=== PATIENT | female | born 1950 | race African-American/Black ===

== ENCOUNTER 2017-02-15 12:20 | Inpatient (IN) | payer OTHER ==
[~2017-02-15] VITALS: Ht 160 cm; Wt 66.5 kg
[2017-02-15 17:46] VITALS: BP 132/72; PULSE 74; RESP 17
[2017-02-15] MEDS ORDERED: NACL 0.9% 3 ML SYG IV SCH (18:30)
[2017-02-15] MEDS ORDERED: HYDROCODONE/APAP (5/325) TAB PO PRN (18:30)
[2017-02-15] MEDS ORDERED: ONDANSETRON 4 MG INJ IV PRN (18:30)
[2017-02-15] MEDS ORDERED: ACETAMINOPHEN 325 MG TAB PO PRN (18:30)
[2017-02-15] MEDS ORDERED: DOCUSATE SODIUM 100 MG CAP PO PRN (18:30)
[2017-02-15] MEDS ORDERED: ZOLPIDEM 5 MG TAB PO PRN (18:30)
[2017-02-15] MEDS ORDERED: VANCOMYCIN IV PER PHARMACY XX SCH (18:30)
[2017-02-15] MEDS ORDERED: morphine 2 MG INJ IV PRN (18:30)
[2017-02-15 18:55] VITALS: Ht 160 cm; Wt 66.5 kg
--- NOTE | 2017-02-15 19:21 | HP ---
DATE OF ADMISSION: 02/15/2017 CHIEF COMPLAINT: Left lower extremity cellulitis. HISTORY OF PRESENT ILLNESS: The patient is a 66-year-old female with a psychiatric disorder. The vince lutz is unable to provide any significant history secondary to her psychiatric condition, as the vince lutz continues to ramble and is unable to answer any of the questions that were asked, but she bailee solo does have a psychiatric disorder. Per documentation from [facility], the patient has a histo ry of hypertension. Other than that, there is a history of chronic leg pain, hernia, noncompl iance, possible rheumatoid arthritis. Once again, the patient is tangential and is unable to provid e any significant history. PAST MEDICAL HISTORY: As per HPI. HOME MEDICATIONS: See medication reconciliation. ALLERGIES: 1. SULFA. 2. AMOXICILLIN. 3. PENICILLIN. FAMILY HISTORY: Unknown. SOCIAL HISTORY: The patient denies any tobacco, drug, or alcohol abuse. She is homeless. REVIEW OF SYSTEMS: A 12-point review of systems is difficult to obtain secondary to patient's poor mentation i.e., her psychiatric condition. PHYSICAL EXAMINATION: VITAL SIGNS: Temperature is 98.2, pulse 74, respiratory rate 17, BP is 132/72, saturation not repor georgiana at this time. GENERAL: The patient is doing well at room air. HEENT: Normocephalic, atraumatic. LUNGS: Clear to auscultation. CARDIOVASCULAR: Regular rate and rhythm. ABDOMEN: Nondistended, nontender, soft. EXTREMITIES: Left lower extremity is notable for significant erythema. LABORATORIES: [facility]'s show white count 6.2, hemoglobin 12.1, platelets are 169. Chemistry pa rikki: Glucose of 93, sodium 135, potassium 2.7, is 28, chloride 98, creatinine is 0.7, calcium is 8.7. ASSESSMENT AND PLAN: 1. Left lower extremity cellulitis, likely chronic. We will treat with vancomycin. We will get an ID consultation. 2. Psychiatric condition. HOME MEDICATION: Unclear. PROPHYLAXIS: Lovenox. Dictated By: ERNIE FELDMAN MD BS/NTS Conf#: [id number] DID#: [id number]
[2017-02-15 19:55] VITALS: BP 121/70; RESP 18
[2017-02-15] MEDS: VANCOMYCIN 500MG/NS (PMX) 100 ML IVPB SCH (20:59)
[2017-02-16 05:49] LABS: ADD SCAN DIFF NO
[2017-02-16 06:07] LABS: BASOPHILS % 0.1 % (0.0-2.0); HEMATOCRIT 35.4 % (37.0-47.0); HEMOGLOBIN 11.3 g/dl (12.0-16.0); LYMPHOCYTES % 13.4 % (15.0-51.0); MEAN CORPUSCULAR HEMOGLOBIN 28.3 pg (29.0-33.0); MEAN CORPUSCULAR HGB CONC 31.9 g/dl (32.0-37.0); MEAN CORPUSCULAR VOLUME 88.5 fl (82.0-101.0); MEAN PLATELET VOLUME 9.8 fl (7.4-10.4); MONOCYTE # 1.1 10^3/ul (0.3-0.9); MONOCYTES % 14.5 % (0.0-11.0); NEUTROPHIL # 5.4 10^3/ul (1.6-7.5); PLATELET COUNT 176 10^3/UL (140-415); RED CELL DISTRIBUTION WIDTH 14.6 % (11.5-14.5); WHITE BLOOD COUNT 7.7 10^3/ul (4.8-10.8)
[2017-02-16 06:16] LABS: POTASSIUM 3.5 mmol/L (3.5-5.1)
[2017-02-16 06:18] LABS: CREATININE 0.56 mg/dl (0.44-1.00)
[2017-02-16 06:19] LABS: CALCIUM 8.4 mg/dl (8.4-10.2); PHOSPHORUS 3.8 mg/dl (2.5-4.9)
[2017-02-16 07:39] VITALS: BP 148/88; RESP 20
[2017-02-16] MEDS: ENOXAPARIN 40 MG/0.4 ML SYG SC SCH (09:02)
[2017-02-16] MEDS: VANCOMYCIN 500MG/NS (PMX) 100 ML IVPB SCH (09:02)
[2017-02-16] MEDS ORDERED: VITAMIN A & D 5 GM OINT PACKET TOP ONE (10:46)
--- NOTE | 2017-02-16 11:19 | PN ---
Date/Time of Note Date/Time of Note DATE: 02/16/17 TIME: 11:17 Assessment/Plan VTE Prophylaxis VTE Prophylaxis Intervention: LMWH Lines/Catheters IV Catheter Type (from Nrs): Saline Lock Assessment/Plan Chief Complaint/Hosp Course 1. Left lower extremity cellulitis, likely chronic -cont vancomycin, ID and wound care consultations 2. Homelessness with Psychiatric condition -SW consult and Tele psych eval PPx- Lovenox Problems: Subjective 24 Hr Interval Summary Constitutional: disoriented Exam/Review of Systems Vital Signs Vitals Vital Signs Date Time Temp Pulse Resp B/P Pulse Ox O2 Delivery O2 Flow Rate FiO2 02/16/17 07:39 98.0 70 20 148/88 97 Intake and Output 02/15/17 02/15/17 02/16/17 15:00 23:00 07:00 Intake Total 100 ml 720 ml Balance 100 ml 720 ml Exam Psych: confusion Respiratory: clear to auscultation Cardiovascular: regular rate and rhythm Gastrointestinal: soft, No distended Musculoskeletal: No nl extremities to inspection Results Result Diagram: 02/16/17 0520 02/16/17 0525 Results 24 hrs Laboratory Tests Test 02/16/17 05:20 02/16/17 05:25 White Blood Count 7.7 Red Blood Count 4.00 L Hemoglobin 11.3 L Hematocrit 35.4 L Mean Corpuscular Volume 88.5 Mean Corpuscular Hemoglobin 28.3 L Mean Corpuscular Hemoglobin Concent 31.9 L Red Cell Distribution Width 14.6 H Platelet Count 176 Mean Platelet Volume 9.8 Neutrophils % 71.0 Lymphocytes % 13.4 L Monocytes % 14.5 H Eosinophils % 0.0 Basophils % 0.1 Nucleated Red Blood Cells % 0.0 Neutrophils # 5.4 Lymphocytes # 1.0 Monocytes # 1.1 H Eosinophils # 0.0 Basophils # 0.0 Nucleated Red Blood Cells # 0.0 Sodium Level 135 Potassium Level 3.5 Chloride Level 101 Carbon Dioxide Level 24 Anion Gap 14 Blood Urea Nitrogen 10 Creatinine 0.56 Glucose Level 79 Hemoglobin A1c 6.0 H Calcium Level 8.4 Phosphorus Level 3.8 Magnesium Level 2.0 Medications Medications Current Medications Ondansetron HCl (Zofran Inj) 4 mg Q6H PRN IV NAUSEA AND/OR VOMITING; Start at 18:30 Acetaminophen (Tylenol Tab) 650 mg Q6H PRN PO PAIN LEVEL 1-3 OR FEVER; Start at 18:30 Acetaminophen/ Hydrocodone Bitart ([place] (5/325)) 1 tab Q6H PRN PO MODERATE PAIN LEVEL 4-6; Start 02/15/17 at 18:30 Morphine Sulfate (morphine) 2 mg Q4H PRN IV SEVERE PAIN LEVEL 7-10; Start 02/15 at 18:30 Docusate Sodium (Colace) 100 mg Q12H PRN PO CONSTIPATION; Start 02/15/17 at 18: 30 Zolpidem Tartrate (Ambien) 5 mg QHS PRN PO SLEEP; Start 02/15/17 at 18:30 Enoxaparin Sodium (Lovenox) 40 mg DAILY SC Last administered on 02/16/17 09:02 ; Admin Dose 40 MG; Start 02/16/17 at 09:00 Lorazepam 1 mg 1 mg Q4H PRN IV AGITATION/ANXIETY; Start 02/15/17 at 18:30 Vancomycin HCl (Vancocin) 100 ml @ 100 mls/hr Q12H IVPB Last administered on 09:02; Admin Dose 100 MLS/HR; Start 02/15/17 at 20:00 Miscellaneous Information (*Rx Drug Level Order Reminder*) VANCOMYCIN TROUGH AT 1900 ONCE ONCE XX ; Start 02/16/17 at 19:00; Stop 02/16/17 at 19:01 ERNIE FELDMAN Feb 16, 2017 11:19
--- NOTE | 2017-02-16 13:01 | PSY ---
Date/Time of Note Date/Time of Note DATE: 02/16/17 TIME: 12:35 Psychiatric Subjective Eval Consent Pt consented to telemedicine: Yes Subjective Evaluation Patient location: inpatient Chief Complaint: Grave disability Reason for consult: Grave disability, confusion, disorganized speech. History of present illness This is a 66 year old [employer] female who was brought to [facility] by ambulance. She was homeless, and was Past psychiatric history She said that she has been hospitalized against her will. Hospitalization: yes Family History Her father was treated for "shell shock". Medical history She has been treated for rheumatoid arthritis, and asthma. She was admitted with cellulitis. Allergies: Coded Allergies: amoxicillin (Verified Allergy, Severe, sob, 02/15/17) Sulfa (Sulfonamide Antibiotics) (Verified Allergy, Intermediate, rashes, ) Penicillins (Unverified Allergy, Unknown, SOB, HEART PALPITATION, 02/15/17) Substance Abuse Substance use: No known substance abuse Substance abuse history: No Prior substance abuse treatmen: No Social History Marital status: Level of education: GED DPA/Conservatorship: No Occupation/Intermediate: Disabled Psychiatric Objective Eval Review of Systems: Review of Systems: Not Applicable Constitutional: Normal Eyes: Normal ENT: Normal Neck: Normal Respiratory: Normal Chest/Breast: Normal Cardiovascular: Normal GI: Normal Genitourinary: Normal Skin: Abnormal Lymphatic: Normal Musculoskeletal: Normal Neurological: Normal Physical Examination: Sleep: Adequate Appetite: Adequate Energy: Adequate Interest: Adequate Mental Status Examination: Appearance: Groomed Eye Contact: Good Psychomotor Activity: Normal Behavior: Friendly, Cooperative Speech: Disorganized AFFECT: Appropriate Mood: Appropriate/Full, Expansive Though Process: Loose, Tangential, Circumstantial, Illogical Thought Content: Normal Suicidal: No Homicidal: No On 72 hour hold: No Orientation: x3 Cognition: Alert Insight: Impared Judgement: Impared Attention Span: Distractible Laboratory Results Laboratory Tests Test 02/16/17 05:20 02/16/17 05:25 White Blood Count 7.710^3/ul Red Blood Count 4.0010^6/ul Hemoglobin 11.3g/dl Hematocrit 35.4% Mean Corpuscular Volume 88.5fl Mean Corpuscular Hemoglobin 28.3pg Mean Corpuscular Hemoglobin Concent 31.9g/dl Red Cell Distribution Width 14.6% Platelet Count 04406^3/UL Mean Platelet Volume 9.8fl Neutrophils % 71.0% Lymphocytes % 13.4% Monocytes % 14.5% Eosinophils % 0.0% Basophils % 0.1% Nucleated Red Blood Cells % 0.0/100WBC Neutrophils # 5.410^3/ul Lymphocytes # 1.010^3/ul Monocytes # 1.110^3/ul Eosinophils # 0.010^3/ul Basophils # 0.010^3/ul Nucleated Red Blood Cells # 0.010^3/ul Sodium Level 135mmol/L Potassium Level 3.5mmol/L Chloride Level 101mmol/L Carbon Dioxide Level 24mmol/L Anion Gap 14 Blood Urea Nitrogen 10mg/dl Creatinine 0.56mg/dl Glucose Level 79mg/dl Hemoglobin A1c 6.0% Calcium Level 8.4mg/dl Phosphorus Level 3.8mg/dl Magnesium Level 2.0mg/dl Assessment and Plan Assessment/Diagnosis [place] I: 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 [place] V: 30 Recommendation/Plan Medication Management The patient is gravely disabled. This is evidenced by her current medical condition, cellutitis. She is not able to provide a coherent history, nor is she able to state how she is able to care for herself. Follow-up/Disposition Suggest that the patient be assessed for 5150, and admitted involuntarily. Suggest Seroquel 50mg po am and 200mg po hs. 5150 Recommendation: MARION Glover MD Feb 16, 2017 12:47
--- NOTE | 2017-02-16 15:05 | CONS ---
DATE OF ADMISSION: 02/15/2017 DATE OF CONSULTATION: 02/16/2017 TYPE OF CONSULTATION: Infectious Disease. REASON FOR CONSULTATION: Antibiotic management. HISTORY OF PRESENT ILLNESS: Comfort Palencia is a 66-year-old female who comes in with left lower extr emity cellulitis and is being seen for antibiotic management. PAST PROBLEMS: Include: 1. Psychiatric disorder. 2. Hypertension. 3. Noncompliance. 4. Chronic leg pain. 5. Possible rheumatoid arthritis. 6. ALLERGIES: SULFA, AMOXICILLIN, PENICILLIN. 7. Homeless. Acutely, the patient comes in with left lower extremity cellulitis. She was seen at [facility] white count was 6.2, hemoglobin 12.1, platelets 169. Her BUN and creatinine was 10/0.56. The pa tient was started on vancomycin alone. PAST MEDICAL HISTORY: Operations as outlined. FAMILY HISTORY: Noncontributory. SOCIAL HISTORY: She does not smoke, drink or abuse drugs. ALLERGIES: 1. PENICILLIN. 2. SULFA OR FOODS. 3. AMOXICILLIN. Not to foods. SOCIAL HISTORY: She does not smoke, drink or abuse drugs. MEDICATIONS: Per chart. REVIEW OF SYSTEMS: Noncontributory. PHYSICAL EXAMINATION: GENERAL: The patient has poor mentation. SKIN: Without generalized rash. HEENT: Within normal limits. NECK: Supple. LYMPH NODES: None palpable. CHEST: Decreased breath sounds at the bases. HEART: Without murmur or gallop. ABDOMEN: Soft, nontender, without organosplenomegaly or masses. EXTREMITIES: Without cyanosis, clubbing, or edema. She has lower extremity erythema. RECTAL AND GENITAL: Deferred. NEUROLOGIC: No focal neurological abnormalities. IMPRESSION AND PLAN: The patient presents with left lower extremity cellulitis, possibly chronic. Continue vancomycin and wound care therapy. I will dictate my findings to Dr. Garay [facility]. Dictated By: ELLYN DIALLO MD, JD/DERECK Conf#: [id number] DID#: [id number]
[2017-02-16 20:00] VITALS: BP 128/70; RESP 16
[2017-02-16] MEDS: VANCOMYCIN 1 GM in NS 250 ML IVPB SCH (20:29)
[2017-02-16] MEDS: QUETIAPINE 100 MG TAB PO SCH (23:41)
[2017-02-17 06:05] LABS: ADD SCAN DIFF NO
[2017-02-17 06:12] LABS: BASOPHILS % 0.2 % (0.0-2.0); HEMATOCRIT 40.4 % (37.0-47.0); HEMOGLOBIN 12.7 g/dl (12.0-16.0); LYMPHOCYTES % 24.8 % (15.0-51.0); MEAN CORPUSCULAR HEMOGLOBIN 28.5 pg (29.0-33.0); MEAN CORPUSCULAR HGB CONC 31.4 g/dl (32.0-37.0); MEAN CORPUSCULAR VOLUME 90.6 fl (82.0-101.0); MONOCYTE # 1.1 10^3/ul (0.3-0.9); NEUTROPHILS % 61.3 % (39.0-77.0); PLATELET COUNT 231 10^3/UL (140-415); RED BLOOD COUNT 4.46 10^6/ul (4.20-5.40); RED CELL DISTRIBUTION WIDTH 14.9 % (11.5-14.5); WHITE BLOOD COUNT 8.2 10^3/ul (4.8-10.8)
[2017-02-17 06:38] LABS: POTASSIUM 3.7 mmol/L (3.5-5.1)
[2017-02-17 06:41] LABS: CREATININE 0.63 mg/dl (0.44-1.00)
[2017-02-17 06:42] LABS: CALCIUM 8.7 mg/dl (8.4-10.2)
[2017-02-17 07:10] VITALS: BP 137/81; RESP 18
[2017-02-17] MEDS: QUETIAPINE 25 MG TAB PO SCH ×2 (09:00→10:23)
[2017-02-17] MEDS: ENOXAPARIN 40 MG/0.4 ML SYG SC SCH (09:00)
[2017-02-17] MEDS ORDERED: QUETIAPINE 25 MG TAB PO SCH (09:00)
[2017-02-17] MEDS: VANCOMYCIN 1 GM in NS 250 ML IVPB SCH ×2 (10:18→20:55)
[2017-02-17] MEDS: LORAZEPAM 2 MG INJ IV PRN (10:18)
[2017-02-17] MEDS ORDERED: VITAMIN A & D 5 GM OINT PACKET TOP ONE (10:24)
--- NOTE | 2017-02-17 16:13 | PN ---
DATE: 02/17/2017 SUBJECTIVE: No acute changes. The patient is lying comfortably in bed. She is afebrile. Vital si gns stable. LABORATORY DATA: WBC 8.2, no shift, no bands. BUN 14, creatinine 0.63. ANTIMICROBIALS: The patient is on IV vancomycin. MICROBIOLOGY: Nares swab came back negative for MRSA. PHYSICAL EXAMINATION: GENERAL: Fragile, elderly woman in no distress. HEENT: Head atraumatic, normocephalic. Sclerae anicteric. Buccal mucosa pink. NECK: Supple. CHEST: Rise symmetrical. Breath sounds clear. HEART: S1, S2. ABDOMEN: Soft, bowel sounds present. EXTREMITIES: Left lower extremity edema, erythema, some blisters. ASSESSMENT: 1. Left lower extremity cellulitis. 2. History of psychiatric problem. 3. Homelessness. 4. ALLERGY TO SULFA, PENICILLIN, AMOXICILLIN. PLAN: The patient remains stable. We are going to continue her on vancomycin. Start Rocephin or I nvanz. Keep left lower extremity elevated. Consider podiatry evaluation. Dictated By: NITA RODRIGUEZ WATCH REPAIR PERSON for ELLYN GREEN/DERECK Conf#: [id number] DID#: [id number]
[2017-02-17] MEDS: CEFTRIAXONE 1 GM/50 ML (PMX) 50 ML IVPB SCH (16:19)
[2017-02-17] MEDS ORDERED: DIPHENHYDRAMINE 50 MG INJ IV PRN (16:30)
--- NOTE | 2017-02-17 18:28 | PN ---
Date/Time of Note Date/Time of Note DATE: 02/17/17 TIME: 18:27 Assessment/Plan VTE Prophylaxis VTE Prophylaxis Intervention: LMWH Lines/Catheters IV Catheter Type (from Nrs): Saline Lock Urinary Cath still in place: No Assessment/Plan Chief Complaint/Hosp Course 1. Left lower extremity cellulitis, likely chronic -cont vancomycin, ID and wound care consultations 2. Homelessness with Psychiatric condition -SW consult and Tele psych eval appreciated, started on Seroquel per Psych recs Dispo- DC to Psych facility with PO Abx likely in 1-2 days PPx- Lovenox Problems: Subjective 24 Hr Interval Summary Constitutional: no complaints Exam/Review of Systems Vital Signs Vitals Vital Signs Date Time Temp Pulse Resp B/P Pulse Ox O2 Delivery O2 Flow Rate FiO2 02/17/17 07:10 98.6 69 18 137/81 96 Intake and Output 02/16/17 02/16/17 02/17/17 15:00 23:00 07:00 Intake Total 100 ml 1670 ml 500 ml Balance 100 ml 1670 ml 500 ml Exam Constitutional: alert Respiratory: clear to auscultation Cardiovascular: regular rate and rhythm Gastrointestinal: soft, No distended Musculoskeletal: No nl extremities to inspection Results Result Diagram: 02/17/17 0415 02/17/17 0415 Results 24 hrs Laboratory Tests Test 02/16/17 19:10 02/17/17 04:15 Vancomycin Level Trough 5.2 L White Blood Count 8.2 Red Blood Count 4.46 Hemoglobin 12.7 Hematocrit 40.4 Mean Corpuscular Volume 90.6 Mean Corpuscular Hemoglobin 28.5 L Mean Corpuscular Hemoglobin Concent 31.4 L Red Cell Distribution Width 14.9 H Platelet Count 231 # Mean Platelet Volume 10.0 Neutrophils % 61.3 Lymphocytes % 24.8 Monocytes % 13.0 H Eosinophils % 0.0 Basophils % 0.2 Nucleated Red Blood Cells % 0.0 Neutrophils # 5.0 Lymphocytes # 2.0 Monocytes # 1.1 H Eosinophils # 0.0 Basophils # 0.0 Nucleated Red Blood Cells # 0.0 Sodium Level 137 Potassium Level 3.7 Chloride Level 100 Carbon Dioxide Level 30 Anion Gap 11 Blood Urea Nitrogen 14 Creatinine 0.63 Glucose Level 107 Calcium Level 8.7 Medications Medications Current Medications Ondansetron HCl (Zofran Inj) 4 mg Q6H PRN IV NAUSEA AND/OR VOMITING; Start at 18:30 Acetaminophen (Tylenol Tab) 650 mg Q6H PRN PO PAIN LEVEL 1-3 OR FEVER; Start at 18:30 Acetaminophen/ Hydrocodone Bitart ([place] (5/325)) 1 tab Q6H PRN PO MODERATE PAIN LEVEL 4-6; Start 02/15/17 at 18:30 Morphine Sulfate (morphine) 2 mg Q4H PRN IV SEVERE PAIN LEVEL 7-10; Start 02/15 at 18:30 Docusate Sodium (Colace) 100 mg Q12H PRN PO CONSTIPATION; Start 02/15/17 at 18: 30 Zolpidem Tartrate (Ambien) 5 mg QHS PRN PO SLEEP; Start 02/15/17 at 18:30 Enoxaparin Sodium (Lovenox) 40 mg DAILY SC Last administered on 02/16/17 09:02 ; Admin Dose 40 MG; Start 02/16/17 at 09:00 Lorazepam (Ativan) 1 mg Q4H PRN IV AGITATION/ANXIETY Last administered on 10:18; Admin Dose 1 MG; Start 02/15/17 at 18:30 Quetiapine Fumarate (Seroquel) 200 mg QHS PO Last administered on 02/16/17 23: 41; Admin Dose 200 MG; Start 02/16/17 at 21:00 Quetiapine Fumarate 50 mg 50 mg QAM PO ; Start 02/17/17 at 09:00 Vancomycin HCl 250 ml @ 125 mls/hr Q12H IVPB Last administered on 02/17/17 10 :18; Admin Dose 125 MLS/HR; Start 02/16/17 at 20:00 Ceftriaxone Sodium (Rocephin) 50 ml @ 100 mls/hr Q24H IVPB Last administered on 02/17/17 16:19; Admin Dose 100 MLS/HR; Start 02/17/17 at 16:30 Diphenhydramine HCl (Benadryl) 25 mg Q6 PRN IV ALLERGIC REACTION; Start at 16:30 ERNIE FELDMAN Feb 17, 2017 18:28
[2017-02-17] MEDS: QUETIAPINE 100 MG TAB PO SCH (21:00)
[2017-02-17 21:30] VITALS: BP 175/107; RESP 19
[2017-02-17] MEDS ORDERED: hydrALAzine 20 MG INJ IV PRN (21:30)
[2017-02-17 23:01] VITALS: BP 144/95
[2017-02-18] MEDS: VANCOMYCIN 1 GM in NS 250 ML IVPB SCH ×2 (08:47→21:44)
[2017-02-18] MEDS: ENOXAPARIN 40 MG/0.4 ML SYG SC SCH (09:00)
[2017-02-18] MEDS: QUETIAPINE 25 MG TAB PO SCH (09:00)
[2017-02-18] MEDS ORDERED: VITAMIN A & D 5 GM OINT PACKET TOP ONE (09:38)
[2017-02-18 10:30] LABS: ADD SCAN DIFF NO
[2017-02-18 10:42] LABS: BASOPHILS % 0.4 % (0.0-2.0); HEMATOCRIT 44.7 % (37.0-47.0); HEMOGLOBIN 14.3 g/dl (12.0-16.0); LYMPHOCYTES # 1.5 10^3/ul (0.8-2.9); LYMPHOCYTES % 22.3 % (15.0-51.0); MEAN CORPUSCULAR HEMOGLOBIN 28.8 pg (29.0-33.0); MEAN CORPUSCULAR VOLUME 89.9 fl (82.0-101.0); MEAN PLATELET VOLUME 9.5 fl (7.4-10.4); MONOCYTE # 0.7 10^3/ul (0.3-0.9); MONOCYTES % 10.1 % (0.0-11.0); NEUTROPHIL # 4.4 10^3/ul (1.6-7.5); NEUTROPHILS % 65.3 % (39.0-77.0); PLATELET COUNT 321 10^3/UL (140-415); RED BLOOD COUNT 4.97 10^6/ul (4.20-5.40); RED CELL DISTRIBUTION WIDTH 14.6 % (11.5-14.5); WHITE BLOOD COUNT 6.7 10^3/ul (4.8-10.8)
[2017-02-18 10:56] LABS: POTASSIUM 3.8 mmol/L (3.5-5.1)
[2017-02-18 10:58] LABS: CREATININE 0.59 mg/dl (0.44-1.00)
[2017-02-18 10:59] LABS: MAGNESIUM 2.2 mg/dl (1.7-2.5)
[2017-02-18 11:33] VITALS: BP 139/85; PULSE 70; RESP 16
--- NOTE | 2017-02-18 13:55 | PN ---
Date/Time of Note Date/Time of Note DATE: 02/18/17 TIME: 13:53 Assessment/Plan VTE Prophylaxis VTE Prophylaxis Intervention: LMWH Lines/Catheters IV Catheter Type (from Nrs): Saline Lock Urinary Cath still in place: No Assessment/Plan Chief Complaint/Hosp Course 1. Left lower extremity cellulitis, likely chronic-Improving -cont vancomycin, ID consultation appreciated 2. Homelessness with Psychiatric condition -SW consult and Tele psych eval appreciated, started on Seroquel per Psych recs Dispo- DC to Psych facility with PO Abx likely in 1-2 days PPx- Lovenox Problems: Subjective 24 Hr Interval Summary Constitutional: disoriented Exam/Review of Systems Vital Signs Vitals Vital Signs Date Time Temp Pulse Resp B/P Pulse Ox O2 Delivery O2 Flow Rate FiO2 02/18/17 11:33 98.6 70 16 139/85 100 Room Air Intake and Output 02/17/17 02/17/17 02/18/17 15:00 23:00 07:00 Intake Total 250 ml 420 ml 100 ml Balance 250 ml 420 ml 100 ml Exam Psych: confusion Respiratory: clear to auscultation Cardiovascular: regular rate and rhythm Gastrointestinal: soft, No distended Musculoskeletal: No nl extremities to inspection Results Result Diagram: 02/18/17 1015 02/18/17 1015 Results 24 hrs Laboratory Tests Test 02/18/17 10:15 White Blood Count 6.7 Red Blood Count 4.97 Hemoglobin 14.3 Hematocrit 44.7 Mean Corpuscular Volume 89.9 Mean Corpuscular Hemoglobin 28.8 L Mean Corpuscular Hemoglobin Concent 32.0 Red Cell Distribution Width 14.6 H Platelet Count 321 # Mean Platelet Volume 9.5 Neutrophils % 65.3 Lymphocytes % 22.3 Monocytes % 10.1 Eosinophils % 0.0 Basophils % 0.4 Nucleated Red Blood Cells % 0.0 Neutrophils # 4.4 Lymphocytes # 1.5 Monocytes # 0.7 Eosinophils # 0.0 Basophils # 0.0 Nucleated Red Blood Cells # 0.0 Sodium Level 139 Potassium Level 3.8 Chloride Level 98 Carbon Dioxide Level 31 Anion Gap 14 Blood Urea Nitrogen 8 Creatinine 0.59 Glucose Level 105 Calcium Level 9.0 Magnesium Level 2.2 Medications Medications Current Medications Ondansetron HCl (Zofran Inj) 4 mg Q6H PRN IV NAUSEA AND/OR VOMITING; Start at 18:30 Acetaminophen (Tylenol Tab) 650 mg Q6H PRN PO PAIN LEVEL 1-3 OR FEVER; Start at 18:30 Acetaminophen/ Hydrocodone Bitart ([place] (5/325)) 1 tab Q6H PRN PO MODERATE PAIN LEVEL 4-6; Start 02/15/17 at 18:30 Morphine Sulfate (morphine) 2 mg Q4H PRN IV SEVERE PAIN LEVEL 7-10; Start 02/15 at 18:30 Docusate Sodium (Colace) 100 mg Q12H PRN PO CONSTIPATION; Start 02/15/17 at 18: 30 Zolpidem Tartrate (Ambien) 5 mg QHS PRN PO SLEEP; Start 02/15/17 at 18:30 Enoxaparin Sodium (Lovenox) 40 mg DAILY SC Last administered on 02/16/17 09:02 ; Admin Dose 40 MG; Start 02/16/17 at 09:00 Lorazepam (Ativan) 1 mg Q4H PRN IV AGITATION/ANXIETY Last administered on 10:18; Admin Dose 1 MG; Start 02/15/17 at 18:30 Quetiapine Fumarate (Seroquel) 200 mg QHS PO Last administered on 02/16/17 23: 41; Admin Dose 200 MG; Start 02/16/17 at 21:00 Quetiapine Fumarate 50 mg 50 mg QAM PO ; Start 02/17/17 at 09:00 Vancomycin HCl 250 ml @ 125 mls/hr Q12H IVPB Last administered on 02/18/17 08 :47; Admin Dose 125 MLS/HR; Start 02/16/17 at 20:00 Ceftriaxone Sodium (Rocephin) 50 ml @ 100 mls/hr Q24H IVPB Last administered on 02/17/17 16:19; Admin Dose 100 MLS/HR; Start 02/17/17 at 16:30 Diphenhydramine HCl (Benadryl) 25 mg Q6 PRN IV ALLERGIC REACTION; Start at 16:30 Hydralazine HCl (Apresoline) 10 mg Q4H PRN IV ELEVATED SYSTOLIC BP Last administered on 02/17/17 21:49; Admin Dose 10 MG; Start 02/17/17 at 21:30 ERNIE FELDMAN Feb 18, 2017 13:55
--- NOTE | 2017-02-18 16:10 | CONS ---
Date/Time of Note Date/Time of Note DATE: 02/18/17 TIME: 16:08 Assessment/Plan Assessment/Plan Chief Complaint/Hosp Course SUBJECTIVE: No acute changes. The patient is lying comfortably in bed. No fevers ANTIMICROBIALS: IV vancomycin and Rocephin. MICROBIOLOGY: Nares swab came back negative for MRSA. PHYSICAL EXAMINATION: GENERAL: Fragile, elderly woman in no distress. HEENT: Head atraumatic, normocephalic. Sclerae anicteric. Buccal mucosa pink. NECK: Supple. CHEST: Rise symmetrical. Breath sounds clear. HEART: S1, S2. ABDOMEN: Soft, bowel sounds present. EXTREMITIES: Left lower extremity edema, erythema, some blisters. ASSESSMENT: 1. Left lower extremity cellulitis. 2. History of psychiatric problem. 3. Homelessness. 4. ALLERGY TO SULFA, PENICILLIN, AMOXICILLIN. PLAN: The patient remains stable. Continue abx. Keep left lower extremity elevated. Consider podiatry evaluation. DW staff Problems: Consultation Date/Type/Reason Admit Date/Time Feb 15, 2017 at 16:49 Initial Consult Date Type of Consultation: id Exam/Review of Systems Vital Signs Vitals Vital Signs Date Time Temp Pulse Resp B/P Pulse Ox O2 Delivery O2 Flow Rate FiO2 02/18/17 11:33 98.6 70 16 139/85 100 Room Air Intake and Output 02/17/17 02/17/17 02/18/17 15:00 23:00 07:00 Intake Total 250 ml 420 ml 100 ml Balance 250 ml 420 ml 100 ml Results Result Diagram: 02/18/17 1015 02/18/17 1015 Results 24 hrs Laboratory Tests Test 02/18/17 10:15 White Blood Count 6.7 Red Blood Count 4.97 Hemoglobin 14.3 Hematocrit 44.7 Mean Corpuscular Volume 89.9 Mean Corpuscular Hemoglobin 28.8 L Mean Corpuscular Hemoglobin Concent 32.0 Red Cell Distribution Width 14.6 H Platelet Count 321 # Mean Platelet Volume 9.5 Neutrophils % 65.3 Lymphocytes % 22.3 Monocytes % 10.1 Eosinophils % 0.0 Basophils % 0.4 Nucleated Red Blood Cells % 0.0 Neutrophils # 4.4 Lymphocytes # 1.5 Monocytes # 0.7 Eosinophils # 0.0 Basophils # 0.0 Nucleated Red Blood Cells # 0.0 Sodium Level 139 Potassium Level 3.8 Chloride Level 98 Carbon Dioxide Level 31 Anion Gap 14 Blood Urea Nitrogen 8 Creatinine 0.59 Glucose Level 105 Calcium Level 9.0 Magnesium Level 2.2 Medications Medications Current Medications Ondansetron HCl (Zofran Inj) 4 mg Q6H PRN IV NAUSEA AND/OR VOMITING; Start at 18:30 Acetaminophen (Tylenol Tab) 650 mg Q6H PRN PO PAIN LEVEL 1-3 OR FEVER; Start at 18:30 Acetaminophen/ Hydrocodone Bitart ([place] (5/325)) 1 tab Q6H PRN PO MODERATE PAIN LEVEL 4-6; Start 02/15/17 at 18:30 Morphine Sulfate (morphine) 2 mg Q4H PRN IV SEVERE PAIN LEVEL 7-10; Start 02/15 at 18:30 Docusate Sodium (Colace) 100 mg Q12H PRN PO CONSTIPATION; Start 02/15/17 at 18: 30 Zolpidem Tartrate (Ambien) 5 mg QHS PRN PO SLEEP; Start 02/15/17 at 18:30 Enoxaparin Sodium (Lovenox) 40 mg DAILY SC Last administered on 02/16/17 09:02 ; Admin Dose 40 MG; Start 02/16/17 at 09:00 Lorazepam (Ativan) 1 mg Q4H PRN IV AGITATION/ANXIETY Last administered on 10:18; Admin Dose 1 MG; Start 02/15/17 at 18:30 Quetiapine Fumarate (Seroquel) 200 mg QHS PO Last administered on 02/16/17 23: 41; Admin Dose 200 MG; Start 02/16/17 at 21:00 Quetiapine Fumarate 50 mg 50 mg QAM PO ; Start 02/17/17 at 09:00 Vancomycin HCl 250 ml @ 125 mls/hr Q12H IVPB Last administered on 02/18/17 08 :47; Admin Dose 125 MLS/HR; Start 02/16/17 at 20:00 Ceftriaxone Sodium (Rocephin) 50 ml @ 100 mls/hr Q24H IVPB Last administered on 02/17/17 16:19; Admin Dose 100 MLS/HR; Start 02/17/17 at 16:30 Diphenhydramine HCl (Benadryl) 25 mg Q6 PRN IV ALLERGIC REACTION; Start at 16:30 Hydralazine HCl (Apresoline) 10 mg Q4H PRN IV ELEVATED SYSTOLIC BP Last administered on 02/17/17t 21:49; Admin Dose 10 MG; Start 02/17/17 at 21:30 Miscellaneous Information (*Rx Drug Level Order Reminder*) VANCO TROUGH @ 1, 900 ON... ONCE ONCE XX ; Start 02/18/17 at 19:00; Stop 02/18/17 at 19:01 NITA RODRIGUEZ NP Feb 18, 2017 16:10
[2017-02-18] MEDS: CEFTRIAXONE 1 GM/50 ML (PMX) 50 ML IVPB SCH (16:14)
[2017-02-18 19:43] VITALS: BP 115/66; PULSE 66; RESP 18
[2017-02-18] MEDS: QUETIAPINE 100 MG TAB PO SCH (21:00)
[2017-02-19 08:00] VITALS: BP 131/75; PULSE 72; RESP 18
[2017-02-19 08:15] VITALS: BP 133/71; RESP 21
[2017-02-19] MEDS: QUETIAPINE 25 MG TAB PO SCH (08:51)
[2017-02-19] MEDS: ENOXAPARIN 40 MG/0.4 ML SYG SC SCH (08:51)
[2017-02-19] MEDS: VANCOMYCIN 1 GM in NS 250 ML IVPB SCH ×2 (08:52→20:25)
--- NOTE | 2017-02-19 14:19 | PN ---
Date/Time of Note Date/Time of Note DATE: 02/19/17 TIME: 14:18 Assessment/Plan VTE Prophylaxis VTE Prophylaxis Intervention: LMWH Lines/Catheters IV Catheter Type (from Nrsg): Saline Lock Urinary Cath still in place: No Assessment/Plan Chief Complaint/Hosp Course 1. Left lower extremity cellulitis, likely chronic-Improving -cont vancomycin, ID consultation appreciated 2. Homelessness with Psychiatric condition -SW consult and Tele psych eval appreciated, started on Seroquel per Psych recs but pt is refusing to take Rx Dispo- DC to Psych facility with PO Abx likely in 1-2 days PPx- Lovenox Problems: Subjective 24 Hr Interval Summary Constitutional: disoriented Exam/Review of Systems Vital Signs Vitals Vital Signs Date Time Temp Pulse Resp B/P Pulse Ox O2 Delivery O2 Flow Rate FiO2 02/19/17 08:15 97.5 71 21 133/71 96 02/19/17 08:00 Room Air Intake and Output 02/18/17 02/18/17 02/19/17 15:00 23:00 07:00 Intake Total 250 ml 1490 ml 730 ml Balance 250 ml 1490 ml 730 ml Exam Psych: confusion Respiratory: clear to auscultation Cardiovascular: regular rate and rhythm Gastrointestinal: soft, No distended Musculoskeletal: No nl extremities to inspection Results Result Diagram: 02/18/17 1015 02/18/17 1015 Results 24 hrs Laboratory Tests Test 02/18/17 19:05 Vancomycin Level Trough 12.4 Medications Medications Current Medications Ondansetron HCl (Zofran Inj) 4 mg Q6H PRN IV NAUSEA AND/OR VOMITING; Start at 18:30 Acetaminophen (Tylenol Tab) 650 mg Q6H PRN PO PAIN LEVEL 1-3 OR FEVER; Start at 18:30 Acetaminophen/ Hydrocodone Bitart ([place] (5/325)) 1 tab Q6H PRN PO MODERATE PAIN LEVEL 4-6; Start 02/15/17 at 18:30 Morphine Sulfate (morphine) 2 mg Q4H PRN IV SEVERE PAIN LEVEL 7-10; Start 02/15 at 18:30 Docusate Sodium (Colace) 100 mg Q12H PRN PO CONSTIPATION; Start 02/15/17 at 18: 30 Zolpidem Tartrate (Ambien) 5 mg QHS PRN PO SLEEP; Start 02/15/17 at 18:30 Enoxaparin Sodium (Lovenox) 40 mg DAILY SC Last administered on 02/16/17 09:02 ; Admin Dose 40 MG; Start 02/16/17 at 09:00 Lorazepam (Ativan) 1 mg Q4H PRN IV AGITATION/ANXIETY Last administered on 10:18; Admin Dose 1 MG; Start 02/15/17 at 18:30 Quetiapine Fumarate (Seroquel) 200 mg QHS PO Last administered on 02/16/17 23: 41; Admin Dose 200 MG; Start 02/16/17 at 21:00 Quetiapine Fumarate 50 mg 50 mg QAM PO ; Start 02/17/17 at 09:00 Vancomycin HCl 250 ml @ 125 mls/hr Q12H IVPB Last administered on 02/19/17 08: 52; Admin Dose 125 MLS/HR; Start 02/16/17 at 20:00 Ceftriaxone Sodium (Rocephin) 50 ml @ 100 mls/hr Q24H IVPB Last administered on 02/18/17 16:14; Admin Dose 100 MLS/HR; Start 02/17/17 at 16:30 Diphenhydramine HCl (Benadryl) 25 mg Q6 PRN IV ALLERGIC REACTION; Start at 16:30 Hydralazine HCl (Apresoline) 10 mg Q4H PRN IV ELEVATED SYSTOLIC BP Last administered on 02/17/17 21:49; Admin Dose 10 MG; Start 02/17/17 at 21:30 ERNIE FELDMAN Feb 19, 2017 14:19
[2017-02-19] MEDS: CEFTRIAXONE 1 GM/50 ML (PMX) 50 ML IVPB SCH (15:52)
--- NOTE | 2017-02-19 19:54 | CONS ---
Date/Time of Note Date/Time of Note DATE: 02/19/17 TIME: 19:53 Assessment/Plan Assessment/Plan Chief Complaint/Hosp Course SUBJECTIVE: No acute changes. No fevers ANTIMICROBIALS: IV vancomycin and Rocephin. MICROBIOLOGY: Nares swab came back negative for MRSA. PHYSICAL EXAMINATION: GENERAL: Fragile, elderly woman in no distress. HEENT: Head atraumatic, normocephalic. Sclerae anicteric. Buccal mucosa pink. NECK: Supple. CHEST: Rise symmetrical. Breath sounds clear. HEART: S1, S2. ABDOMEN: Soft, bowel sounds present. EXTREMITIES: Left lower extremity edema, erythema, some blisters. ASSESSMENT: 1. Left lower extremity cellulitis. 2. History of psychiatric problem. 3. Homelessness. 4. ALLERGY TO SULFA, PENICILLIN, AMOXICILLIN. PLAN: Clinically stable. Continue abx. Keep left lower extremity elevated DW staff Problems: Consultation Date/Type/Reason Admit Date/Time Feb 15, 2017 at 16:49 Type of Consultation: id Exam/Review of Systems Vital Signs Vitals Vital Signs Date Time Temp Pulse Resp B/P Pulse Ox O2 Delivery O2 Flow Rate FiO2 02/19/17 08:15 97.5 71 21 133/71 96 02/19/17 08:00 Room Air Intake and Output 02/18/17 02/18/17 02/19/17 15:00 23:00 07:00 Intake Total 250 ml 1490 ml 730 ml Balance 250 ml 1490 ml 730 ml Results Result Diagram: 02/18/17 1015 02/18/17 1015 Medications Medications Current Medications Ondansetron HCl (Zofran Inj) 4 mg Q6H PRN IV NAUSEA AND/OR VOMITING; Start at 18:30 Acetaminophen (Tylenol Tab) 650 mg Q6H PRN PO PAIN LEVEL 1-3 OR FEVER; Start at 18:30 Acetaminophen/ Hydrocodone Bitart ([place] (5/325)) 1 tab Q6H PRN PO MODERATE PAIN LEVEL 4-6; Start 02/15/17 at 18:30 Morphine Sulfate (morphine) 2 mg Q4H PRN IV SEVERE PAIN LEVEL 7-10; Start 02/15 at 18:30 Docusate Sodium (Colace) 100 mg Q12H PRN PO CONSTIPATION; Start 02/15/17 at 18: 30 Zolpidem Tartrate (Ambien) 5 mg QHS PRN PO SLEEP; Start 02/15/17 at 18:30 Enoxaparin Sodium (Lovenox) 40 mg DAILY SC Last administered on 02/16/17 09:02 ; Admin Dose 40 MG; Start 02/16/17 at 09:00 Lorazepam (Ativan) 1 mg Q4H PRN IV AGITATION/ANXIETY Last administered on 10:18; Admin Dose 1 MG; Start 02/15/17 at 18:30 Quetiapine Fumarate (Seroquel) 200 mg QHS PO Last administered on 02/16/17 23: 41; Admin Dose 200 MG; Start 02/16/17 at 21:00 Quetiapine Fumarate 50 mg 50 mg QAM PO ; Start 02/17/17 at 09:00 Vancomycin HCl 250 ml @ 125 mls/hr Q12H IVPB Last administered on 02/19/17 08: 52; Admin Dose 125 MLS/HR; Start 02/16/17 at 20:00 Ceftriaxone Sodium (Rocephin) 50 ml @ 100 mls/hr Q24H IVPB Last administered on 02/19/17 15:52; Admin Dose 100 MLS/HR; Start 02/17/17 at 16:30 Diphenhydramine HCl (Benadryl) 25 mg Q6 PRN IV ALLERGIC REACTION; Start at 16:30 Hydralazine HCl (Apresoline) 10 mg Q4H PRN IV ELEVATED SYSTOLIC BP Last administered on 02/17/17 21:49; Admin Dose 10 MG; Start 02/17/17 at 21:30 NITA RODRIGUEZ NP Feb 19, 2017 19:54
[2017-02-19 20:37] VITALS: BP 132/82; RESP 16
[2017-02-19] MEDS: QUETIAPINE 100 MG TAB PO SCH (21:00)
[2017-02-20 08:34] VITALS: BP 139/83; RESP 17
[2017-02-20] MEDS: QUETIAPINE 25 MG TAB PO SCH (09:00)
[2017-02-20] MEDS: ENOXAPARIN 40 MG/0.4 ML SYG SC SCH (09:00)
[2017-02-20] MEDS: VANCOMYCIN 1 GM in NS 250 ML IVPB SCH ×2 (10:00→20:52)
[2017-02-20] MEDS: CEFTRIAXONE 1 GM/50 ML (PMX) 50 ML IVPB SCH (17:20)
--- NOTE | 2017-02-20 17:49 | CONS ---
Date/Time of Note Date/Time of Note DATE: 02/20/17 TIME: 17:49 Assessment/Plan Assessment/Plan Chief Complaint/Hosp Course SUBJECTIVE: No acute changes. Alert, looks comfortable. No fevers ANTIMICROBIALS: IV vancomycin and Rocephin. MICROBIOLOGY: Nares swab came back negative for MRSA. PHYSICAL EXAMINATION: GENERAL: Fragile, elderly woman in no distress. HEENT: Head atraumatic, normocephalic. Sclerae anicteric. Buccal mucosa pink. NECK: Supple. CHEST: Rise symmetrical. Breath sounds clear. HEART: S1, S2. ABDOMEN: Soft, bowel sounds present. EXTREMITIES: Left lower extremity edema, erythema, some blisters. ASSESSMENT: 1. Left lower extremity cellulitis. 2. History of psychiatric problem. 3. Homelessness. 4. ALLERGY TO SULFA, PENICILLIN, AMOXICILLIN. PLAN: Clinically stable. LLE looks better. Continue abx. Keep left lower extremity elevated. Anticipate dc on oral Doxycycline DW staff Problems: Consultation Date/Type/Reason Admit Date/Time Feb 15, 2017 at 16:49 Type of Consultation: id Exam/Review of Systems Vital Signs Vitals Vital Signs Date Time Temp Pulse Resp B/P Pulse Ox O2 Delivery O2 Flow Rate FiO2 02/20/17 08:34 98.6 61 17 139/83 93 02/19/17 08:00 Room Air Intake and Output 02/19/17 02/19/17 02/20/17 15:00 23:00 07:00 Intake Total 850 ml 650 ml 480 ml Output Total 500 ml 300 ml Balance 350 ml 350 ml 480 ml Results Result Diagram: 02/18/17 1015 02/18/17 1015 Medications Medications Current Medications Ondansetron HCl (Zofran Inj) 4 mg Q6H PRN IV NAUSEA AND/OR VOMITING; Start at 18:30 Acetaminophen (Tylenol Tab) 650 mg Q6H PRN PO PAIN LEVEL 1-3 OR FEVER; Start at 18:30 Acetaminophen/ Hydrocodone Bitart ([place] (5/325)) 1 tab Q6H PRN PO MODERATE PAIN LEVEL 4-6; Start 02/15/17 at 18:30 Morphine Sulfate (morphine) 2 mg Q4H PRN IV SEVERE PAIN LEVEL 7-10; Start 02/15 at 18:30 Docusate Sodium (Colace) 100 mg Q12H PRN PO CONSTIPATION; Start 02/15/17 at 18: 30 Zolpidem Tartrate (Ambien) 5 mg QHS PRN PO SLEEP; Start 02/15/17 at 18:30 Enoxaparin Sodium (Lovenox) 40 mg DAILY SC Last administered on 02/16/17 09:02 ; Admin Dose 40 MG; Start 02/16/17 at 09:00 Lorazepam (Ativan) 1 mg Q4H PRN IV AGITATION/ANXIETY Last administered on 10:18; Admin Dose 1 MG; Start 02/15/17 at 18:30 Quetiapine Fumarate (Seroquel) 200 mg QHS PO Last administered on 02/16/17 23: 41; Admin Dose 200 MG; Start 02/16/17 at 21:00 Quetiapine Fumarate 50 mg 50 mg QAM PO ; Start 02/17/17 at 09:00 Vancomycin HCl 250 ml @ 125 mls/hr Q12H IVPB Last administered on 02/20/17 10: 00; Admin Dose 125 MLS/HR; Start 02/16/17 at 20:00 Ceftriaxone Sodium (Rocephin) 50 ml @ 100 mls/hr Q24H IVPB Last administered on 02/20/17 17:20; Admin Dose 100 MLS/HR; Start 02/17/17 at 16:30 Diphenhydramine HCl (Benadryl) 25 mg Q6 PRN IV ALLERGIC REACTION; Start at 16:30 Hydralazine HCl (Apresoline) 10 mg Q4H PRN IV ELEVATED SYSTOLIC BP Last administered on 02/17/17 21:49; Admin Dose 10 MG; Start 02/17/17 at 21:30 Miscellaneous Information (*Rx Drug Level Order Reminder*) VANCOMYCIN TROUGH 02/21 AT 0700 ONCE ONCE XX ; Start 02/21/17 at 07:00; Stop 02/21/17 at 07:01 NITA RODRIGUEZ NP Feb 20, 2017 17:49
--- NOTE | 2017-02-20 17:52 | PN ---
Date/Time of Note Date/Time of Note DATE: 02/20/17 TIME: 17:51 Assessment/Plan VTE Prophylaxis VTE Prophylaxis Intervention: LMWH Lines/Catheters IV Catheter Type (from Nrsg): Saline Lock Urinary Cath still in place: No Assessment/Plan Chief Complaint/Hosp Course 1. Left lower extremity cellulitis, likely chronic-Improving -cont vancomycin, ID consultation appreciated 2. Homelessness with Psychiatric condition -SW consult and Tele psych eval appreciated, started on Seroquel per Psych recs but pt is refusing to take Rx Dispo- DC to Psych facility with PO Abx likely in 1-2 days PPx- Lovenox Problems: Subjective 24 Hr Interval Summary Constitutional: disoriented Exam/Review of Systems Vital Signs Vitals Vital Signs Date Time Temp Pulse Resp B/P Pulse Ox O2 Delivery O2 Flow Rate FiO2 02/20/17 08:34 98.6 61 17 139/83 93 02/19/17 08:00 Room Air Intake and Output 02/19/17 02/19/17 02/20/17 15:00 23:00 07:00 Intake Total 850 ml 650 ml 480 ml Output Total 500 ml 300 ml Balance 350 ml 350 ml 480 ml Exam Psych: confusion Respiratory: clear to auscultation Cardiovascular: regular rate and rhythm Gastrointestinal: soft, No distended Musculoskeletal: No nl extremities to inspection Results Result Diagram: 02/18/17 1015 02/18/17 1015 Medications Medications Current Medications Ondansetron HCl (Zofran Inj) 4 mg Q6H PRN IV NAUSEA AND/OR VOMITING; Start at 18:30 Acetaminophen (Tylenol Tab) 650 mg Q6H PRN PO PAIN LEVEL 1-3 OR FEVER; Start at 18:30 Acetaminophen/ Hydrocodone Bitart ([place] (5/325)) 1 tab Q6H PRN PO MODERATE PAIN LEVEL 4-6; Start 02/15/17 at 18:30 Morphine Sulfate (morphine) 2 mg Q4H PRN IV SEVERE PAIN LEVEL 7-10; Start 02/15 at 18:30 Docusate Sodium (Colace) 100 mg Q12H PRN PO CONSTIPATION; Start 02/15/17 at 18: 30 Zolpidem Tartrate (Ambien) 5 mg QHS PRN PO SLEEP; Start 02/15/17 at 18:30 Enoxaparin Sodium (Lovenox) 40 mg DAILY SC Last administered on 02/16/17 09:02 ; Admin Dose 40 MG; Start 02/16/17 at 09:00 Lorazepam (Ativan) 1 mg Q4H PRN IV AGITATION/ANXIETY Last administered on 10:18; Admin Dose 1 MG; Start 02/15/17 at 18:30 Quetiapine Fumarate (Seroquel) 200 mg QHS PO Last administered on 02/16/17 23: 41; Admin Dose 200 MG; Start 02/16/17 at 21:00 Quetiapine Fumarate 50 mg 50 mg QAM PO ; Start 02/17/17 at 09:00 Vancomycin HCl 250 ml @ 125 mls/hr Q12H IVPB Last administered on 02/20/17 10: 00; Admin Dose 125 MLS/HR; Start 02/16/17 at 20:00 Ceftriaxone Sodium (Rocephin) 50 ml @ 100 mls/hr Q24H IVPB Last administered on 02/20/17 17:20; Admin Dose 100 MLS/HR; Start 02/17/17 at 16:30 Diphenhydramine HCl (Benadryl) 25 mg Q6 PRN IV ALLERGIC REACTION; Start at 16:30 Hydralazine HCl (Apresoline) 10 mg Q4H PRN IV ELEVATED SYSTOLIC BP Last administered on 02/17/17 21:49; Admin Dose 10 MG; Start 02/17/17 at 21:30 Miscellaneous Information (*Rx Drug Level Order Reminder*) VANCOMYCIN TROUGH 02/21 AT 0700 ONCE ONCE XX ; Start 02/21/17 at 07:00; Stop 02/21/17 at 07:01 ERNIE FELDMAN Feb 20, 2017 17:51
[2017-02-20 20:10] VITALS: BP 106/66; RESP 18
[2017-02-20] MEDS: QUETIAPINE 100 MG TAB PO SCH (20:42)
[2017-02-21 07:52] LABS: CREATININE 0.6 mg/dl (0.44-1.00)
[2017-02-21 08:19] VITALS: BP 133/85; RESP 20
[2017-02-21] MEDS: QUETIAPINE 25 MG TAB PO SCH ×2 (08:43→08:51)
[2017-02-21] MEDS: ENOXAPARIN 40 MG/0.4 ML SYG SC SCH ×2 (08:44→08:51)
[2017-02-21] MEDS: VANCOMYCIN 1 GM in NS 250 ML IVPB SCH (08:44)
--- NOTE | 2017-02-21 14:23 | CONS ---
Date/Time of Note Date/Time of Note DATE: 02/21/17 TIME: 14:23 Assessment/Plan Assessment/Plan Chief Complaint/Hosp Course SUBJECTIVE: No acute changes. Alert, looks comfortable. No fevers ANTIMICROBIALS: IV vancomycin and Rocephin. MICROBIOLOGY: Nares swab came back negative for MRSA. PHYSICAL EXAMINATION: GENERAL: Fragile, elderly woman in no distress. HEENT: Head atraumatic, normocephalic. Sclerae anicteric. Buccal mucosa pink. NECK: Supple. CHEST: Rise symmetrical. Breath sounds clear. HEART: S1, S2. ABDOMEN: Soft, bowel sounds present. EXTREMITIES: Left lower extremity edema, erythema, some blisters. ASSESSMENT: 1. Left lower extremity cellulitis. 2. History of psychiatric problem. 3. Homelessness. 4. ALLERGY TO SULFA, PENICILLIN, AMOXICILLIN. PLAN: Clinically stable. LLE looks better. Continue abx. Keep left lower extremity elevated. Anticipate dc on oral Doxycycline DW staff Problems: Consultation Date/Type/Reason Admit Date/Time Feb 15, 2017 at 16:49 Type of Consultation: id Exam/Review of Systems Vital Signs Vitals Vital Signs Date Time Temp Pulse Resp B/P Pulse Ox O2 Delivery O2 Flow Rate FiO2 02/21/17 08:19 98.2 66 20 133/85 97 02/19/17 08:00 Room Air Intake and Output 02/20/17 02/20/17 02/21/17 15:00 23:00 07:00 Intake Total 250 ml 1690 ml 360 ml Output Total 1200 ml Balance 250 ml 1690 ml -840 ml Results Result Diagram: 02/18/17 1015 02/21/17 0710 Results 24 hrs Laboratory Tests Test 02/21/17 07:10 Blood Urea Nitrogen 14 Creatinine 0.60 Vancomycin Level Trough 11.3 Medications Medications Current Medications Ondansetron HCl (Zofran Inj) 4 mg Q6H PRN IV NAUSEA AND/OR VOMITING; Start at 18:30 Acetaminophen (Tylenol Tab) 650 mg Q6H PRN PO PAIN LEVEL 1-3 OR FEVER; Start at 18:30 Acetaminophen/ Hydrocodone Bitart ([place] (5/325)) 1 tab Q6H PRN PO MODERATE PAIN LEVEL 4-6; Start 02/15/17 at 18:30 Morphine Sulfate (morphine) 2 mg Q4H PRN IV SEVERE PAIN LEVEL 7-10; Start 02/15 at 18:30 Docusate Sodium (Colace) 100 mg Q12H PRN PO CONSTIPATION; Start 02/15/17 at 18: 30 Zolpidem Tartrate (Ambien) 5 mg QHS PRN PO SLEEP; Start 02/15/17 at 18:30 Enoxaparin Sodium (Lovenox) 40 mg DAILY SC Last administered on 02/16/17 09:02 ; Admin Dose 40 MG; Start 02/16/17 at 09:00 Lorazepam (Ativan) 1 mg Q4H PRN IV AGITATION/ANXIETY Last administered on 10:18; Admin Dose 1 MG; Start 02/15/17 at 18:30 Quetiapine Fumarate (Seroquel) 200 mg QHS PO Last administered on 02/16/17 23: 41; Admin Dose 200 MG; Start 02/16/17 at 21:00 Quetiapine Fumarate 50 mg 50 mg QAM PO ; Start 02/17/17 at 09:00 Vancomycin HCl 250 ml @ 125 mls/hr Q12H IVPB Last administered on 02/21/17 08: 44; Admin Dose 125 MLS/HR; Start 02/16/17 at 20:00 Ceftriaxone Sodium (Rocephin) 50 ml @ 100 mls/hr Q24H IVPB Last administered on 02/20/17 17:20; Admin Dose 100 MLS/HR; Start 02/17/17 at 16:30 Diphenhydramine HCl (Benadryl) 25 mg Q6 PRN IV ALLERGIC REACTION; Start at 16:30 Hydralazine HCl (Apresoline) 10 mg Q4H PRN IV ELEVATED SYSTOLIC BP Last administered on 02/17/17 21:49; Admin Dose 10 MG; Start 02/17/17 at 21:30 NITA RODRIGUEZ NP Feb 21, 2017 14:23
--- NOTE | 2017-02-21 14:43 | PN ---
Date/Time of Note Date/Time of Note DATE: 02/21/17 TIME: 14:40 Assessment/Plan VTE Prophylaxis VTE Prophylaxis Intervention: LMWH Lines/Catheters IV [facility] Saline Lock Urinary Cath still in place: No Assessment/Plan Assessment/Plan 1. Left lower extremity cellulitis, stable, change antibiotics to doxycycline, wound care ordered 2. History of psychiatric problem. 3. Homelessness. 4. ALLERGY TO SULFA, PENICILLIN, AMOXICILLIN. 5. DVT prophylaxis: lovenox Subjective 24 Hr Interval Summary Free Text/Dictation afebrile Exam/Review of Systems Vital Signs Vitals Vital Signs Date Time Temp Pulse Resp B/P Pulse Ox O2 Delivery O2 Flow Rate FiO2 02/21/17 08:19 98.2 66 20 133/85 97 02/19/17 08:00 Room Air Intake and Output 02/20/17 02/20/17 02/21/17 15:00 23:00 07:00 Intake Total 250 ml 1690 ml 360 ml Output Total 1200 ml Balance 250 ml 1690 ml -840 ml Exam Constitutional: alert, oriented, well developed Head: atraumatic, normocephalic Eyes: EOMI, PERRL, nl conjunctiva, nl lids ENMT: nl external ears & nose, nl lips & teeth, nl nasal mucosa & septum Neck: non-tender, supple Respiratory: clear to auscultation, normal air movement, No congested cough, No crackles/rales, No diminished breath sounds, No intercostal retraction, No labored breathing, No other, No respirations, No tactile fremitus, No wheezing Cardiovascular: nl pulses, regular rate and rhythm Gastrointestinal: nl liver, spleen, non-tender, soft, No ascites, No bowel sounds, No distended, No firm, No hepatomegaly, No mass , No other, No rebound or guarding, No splenomegaly, No surgical scars, No tender Musculoskeletal: nl extremities to inspection Extremities: edema, normal pulses, pitting pedal edema, tenderness, No calf tenderness, No clubbing, No cyanosis, No palpable cord Neurological: PLUSH DRESSER II-XII intact, nl mental status, nl speech, nl strength Skin: other (left lower extremity with swelling, redness, and peeling skin) Results Result Diagram: 02/18/17 1015 02/21/17 0710 Results 24 hrs Laboratory Tests Test 02/21/17 07:10 Blood Urea Nitrogen 14 Creatinine 0.60 Vancomycin Level Trough 11.3 Medications Medications Current Medications Ondansetron HCl (Zofran Inj) 4 mg Q6H PRN IV NAUSEA AND/OR VOMITING; Start at 18:30 Acetaminophen (Tylenol Tab) 650 mg Q6H PRN PO PAIN LEVEL 1-3 OR FEVER; Start at 18:30 Acetaminophen/ Hydrocodone Bitart ([place] (5/325)) 1 tab Q6H PRN PO MODERATE PAIN LEVEL 4-6; Start 02/15/17 at 18:30 Morphine Sulfate (morphine) 2 mg Q4H PRN IV SEVERE PAIN LEVEL 7-10; Start 02/15 at 18:30 Docusate Sodium (Colace) 100 mg Q12H PRN PO CONSTIPATION; Start 02/15/17 at 18: 30 Zolpidem Tartrate (Ambien) 5 mg QHS PRN PO SLEEP; Start 02/15/17 at 18:30 Enoxaparin Sodium (Lovenox) 40 mg DAILY SC Last administered on 02/16/17 09:02 ; Admin Dose 40 MG; Start 02/16/17 at 09:00 Lorazepam (Ativan) 1 mg Q4H PRN IV AGITATION/ANXIETY Last administered on 10:18; Admin Dose 1 MG; Start 02/15/17 at 18:30 Quetiapine Fumarate (Seroquel) 200 mg QHS PO Last administered on 02/16/17 23: 41; Admin Dose 200 MG; Start 02/16/17 at 21:00 Quetiapine Fumarate 50 mg 50 mg QAM PO ; Start 02/17/17 at 09:00 Vancomycin HCl 250 ml @ 125 mls/hr Q12H IVPB Last administered on 02/21/17 08: 44; Admin Dose 125 MLS/HR; Start 02/16/17 at 20:00 Ceftriaxone Sodium (Rocephin) 50 ml @ 100 mls/hr Q24H IVPB Last administered on 02/20/17 17:20; Admin Dose 100 MLS/HR; Start 02/17/17 at 16:30 Diphenhydramine HCl (Benadryl) 25 mg Q6 PRN IV ALLERGIC REACTION; Start 3/30/ 17 at 16:30 Hydralazine HCl (Apresoline) 10 mg Q4H PRN IV ELEVATED SYSTOLIC BP Last administered on 02/17/17t 21:49; Admin Dose 10 MG; Start 02/17/17 at 21:30 ABRAHAM CRISTINA MD Feb 21, 2017 14:43
[2017-02-21] MEDS: DOXYCYCLINE 100 MG TAB PO SCH ×2 (16:00→20:37)
[2017-02-21] MEDS: QUETIAPINE 100 MG TAB PO SCH ×2 (20:37→20:51)
[2017-02-22 07:28] VITALS: BP 113/78; RESP 18
[2017-02-22] MEDS: ENOXAPARIN 40 MG/0.4 ML SYG SC SCH (09:00)
[2017-02-22] MEDS: QUETIAPINE 25 MG TAB PO SCH (09:00)
[2017-02-22] MEDS: DOXYCYCLINE 100 MG TAB PO SCH ×2 (09:57→21:00)
--- NOTE | 2017-02-22 13:24 | CONS ---
Date/Time of Note Date/Time of Note DATE: 02/22/17 TIME: 13:23 Assessment/Plan Assessment/Plan Chief Complaint/Hosp Course SUBJECTIVE: No acute changes. Alert, looks comfortable. No fevers ANTIMICROBIALS: Doxycycline, s/p vancomycin and Rocephin. MICROBIOLOGY: Nares swab came back negative for MRSA. PHYSICAL EXAMINATION: GENERAL: Fragile, elderly woman in no distress. HEENT: Head atraumatic, normocephalic. Sclerae anicteric. Buccal mucosa pink. NECK: Supple. CHEST: Rise symmetrical. Breath sounds clear. HEART: S1, S2. ABDOMEN: Soft, bowel sounds present. EXTREMITIES: Left lower extremity edema, erythema, some blisters. ASSESSMENT: 1. Left lower extremity cellulitis. 2. History of psychiatric problem. 3. Homelessness. 4. ALLERGY TO SULFA, PENICILLIN, AMOXICILLIN. PLAN: Clinically stable. LLE looks better. Continue abx. Keep left lower extremity elevated. DW staff Problems: Consultation Date/Type/Reason Admit Date/Time Feb 15, 2017 at 16:49 Type of Consultation: id Exam/Review of Systems Vital Signs Vitals Vital Signs Date Time Temp Pulse Resp B/P Pulse Ox O2 Delivery O2 Flow Rate FiO2 02/22/17 07:28 97.9 61 18 113/78 96 02/19/17 08:00 Room Air Intake and Output 02/21/17 02/21/17 02/22/17 15:00 23:00 07:00 Intake Total 960 ml 150 ml Output Total 950 ml Balance 10 ml 150 ml Results Result Diagram: 02/18/17 1015 02/21/17 0710 Medications Medications Current Medications Ondansetron HCl (Zofran Inj) 4 mg Q6H PRN IV NAUSEA AND/OR VOMITING; Start at 18:30 Acetaminophen (Tylenol Tab) 650 mg Q6H PRN PO PAIN LEVEL 1-3 OR FEVER; Start at 18:30 Acetaminophen/ Hydrocodone Bitart ([place] (5/325)) 1 tab Q6H PRN PO MODERATE PAIN LEVEL 4-6; Start 02/15/17 at 18:30 Morphine Sulfate (morphine) 2 mg Q4H PRN IV SEVERE PAIN LEVEL 7-10; Start 02/15 at 18:30 Docusate Sodium (Colace) 100 mg Q12H PRN PO CONSTIPATION; Start 02/15/17 at 18: 30 Zolpidem Tartrate (Ambien) 5 mg QHS PRN PO SLEEP; Start 02/15/17 at 18:30 Enoxaparin Sodium (Lovenox) 40 mg DAILY SC Last administered on 02/16/17 09:02 ; Admin Dose 40 MG; Start 02/16/17 at 09:00 Lorazepam (Ativan) 1 mg Q4H PRN IV AGITATION/ANXIETY Last administered on 10:18; Admin Dose 1 MG; Start 02/15/17 at 18:30 Quetiapine Fumarate (Seroquel) 200 mg QHS PO Last administered on 02/16/17 23: 41; Admin Dose 200 MG; Start 02/16/17 at 21:00 Quetiapine Fumarate (Seroquel) 50 mg QAM PO ; Start 02/17/17 at 09:00 Diphenhydramine HCl (Benadryl) 25 mg Q6 PRN IV ALLERGIC REACTION; Start at 16:30 Hydralazine HCl (Apresoline) 10 mg Q4H PRN IV ELEVATED SYSTOLIC BP Last administered on 02/17/17 21:49; Admin Dose 10 MG; Start 02/17/17 at 21:30 Doxycycline Hyclate (Vibramycin) 100 mg BID PO Last administered on 02/22/17 09 :57; Admin Dose 100 MG; Start 02/21/17 at 16:00 NITA RODRIGUEZ NP Feb 22, 2017 13:24
[2017-02-22] MEDS ORDERED: DOXY100T2 PO (15:01)
--- NOTE | 2017-02-22 15:14 | DS ---
Date/Time of Note Date/Time of Note DATE: 02/22/17 TIME: 15:07 Discharge Summary Admission/Discharge Info Admit Date/Time Feb 15, 2017 at 16:49 Discharge Date/Time Final Diagnosis 1. Left lower extremity cellulitis, stable, change antibiotics to doxycycline, wound care ordered 2. History of psychiatric problem. 3. ALLERGY TO SULFA, PENICILLIN, AMOXICILLIN. Patient Condition: Stable Hospital Course The patient is a 66-year-old female with a psychiatric disorder. The patient is unable to provide any significant history secondary to her psychiatric condition, as the patient continues to ramble and is unable to answer any of the questions that were asked, but she clearly does have a psychiatric disorder. Per documentation from [facility], the patient has a history of hypertension. Other than that, there is a history of chronic leg pain, hernia, noncompliance, possible rheumatoid arthritis. Patient has redness, swelling and peeling scaly skin on left lower extremity, that she has been treated with antibiotics for cellulitis. Patient is instrcucted to keep the left lower extremity elevated. The redness and swelling has been significantly improved. She will be discharged from medical service with oral doxycycline. No wound care needed. Patient will be evaluated by psyciatry team for further treatment of psychiatric disorder. Home Meds Active Scripts Doxycycline* (Vibramycin*) 100 Mg Tab, 100 MG PO BID for 7 Days, TAB Prov:ABRAHAM CRISTINA MD 02/22/17 Follow-up Plan follow up with PCP one week Psychiatry team ABRAHAM CRISTINA MD Feb 22, 2017 15:14
[2017-02-22] MEDS: QUETIAPINE 100 MG TAB PO SCH (21:00)
[2017-02-22 21:20] VITALS: BP 108/66; RESP 19
[2017-02-23] MEDS: LORAZEPAM 2 MG INJ IV PRN (07:57)
[2017-02-23] MEDS: DOXYCYCLINE 100 MG TAB PO SCH (07:58)
[2017-02-23] MEDS: QUETIAPINE 25 MG TAB PO SCH ×2 (07:59→08:02)
[2017-02-23] MEDS: ENOXAPARIN 40 MG/0.4 ML SYG SC SCH (07:59)
--- NOTE | 2017-02-23 15:55 | PN ---
Date/Time of Note Date/Time of Note DATE: 02/23/17 TIME: 15:54 Assessment/Plan VTE Prophylaxis VTE Prophylaxis Intervention: LMWH Lines/Catheters IV Catheter Type (from [facility]): Saline Lock Urinary Cath still in place: No Assessment/Plan Chief Complaint/Hosp Course The patient is a 66-year-old female with a psychiatric disorder. The patient is unable to provide any significant history secondary to her psychiatric condition, as the patient continues to ramble and is unable to answer any of the questions that were asked, but she clearly does have a psychiatric disorder. Per documentation from [facility], the patient has a history of hypertension. Other than that, there is a history of chronic leg pain, hernia, noncompliance, possible rheumatoid arthritis. Patient has redness, swelling and peeling scaly skin on left lower extremity, that she has been treated with antibiotics for cellulitis. Patient is instrcucted to keep the left lower extremity elevated. The redness and swelling has been significantly improved. She will be discharged from medical service with oral doxycycline. No wound care needed. Patient will be evaluated by psyciatry team for further treatment of psychiatric disorder. Problems: Assessment/Plan 1. Left lower extremity cellulitis, stable, change antibiotics to doxycycline, wound care ordered 2. History of psychiatric problem. awaiting for placement 3. ALLERGY TO SULFA, PENICILLIN, AMOXICILLIN. Subjective 24 Hr Interval Summary Free Text/Dictation afebrile Exam/Review of Systems Vital Signs Vitals Vital Signs Date Time Temp Pulse Resp B/P Pulse Ox O2 Delivery O2 Flow Rate FiO2 02/22/17 21:20 98.1 68 19 108/66 100 02/19/17 08:00 Room Air Intake and Output 02/22/17 02/22/17 02/23/17 14:59 22:59 06:59 Intake Total 820 ml 480 ml Balance 820 ml 480 ml Exam Constitutional: alert, oriented, well developed Psych: nl mood/affect, no complaints Head: atraumatic, normocephalic Eyes: EOMI, PERRL, nl conjunctiva, nl lids ENMT: nl external ears & nose, nl lips & teeth, nl nasal mucosa & septum Neck: non-tender, supple Respiratory: clear to auscultation, normal air movement, No congested cough, No crackles/rales, No diminished breath sounds, No intercostal retraction, No labored breathing, No other, No respirations, No tactile fremitus, No wheezing Cardiovascular: nl pulses, regular rate and rhythm, No S3, No S4, No bruits, No diastolic murmur, No edema, No gallop, No irregular rhythm, No jugular venous distention (JVD), No murmurs/extra sounds, No other, No rub, No systolic murmur Gastrointestinal: nl liver, spleen, non-tender, soft, No ascites, No bowel sounds, No distended, No firm, No hepatomegaly, No mass , No other, No rebound or guarding, No splenomegaly, No surgical scars, No tender Musculoskeletal: nl extremities to inspection Extremities: normal pulses, No calf tenderness, No clubbing, No cyanosis, No edema, No other, No palpable cord, No pitting pedal edema, No tenderness Neurological: RECORDS CLERK II-XII intact, nl mental status, nl speech, nl strength Skin: nl turgor Lymph: nl lymph nodes Results Result Diagram: 02/21/17 0710 Medications Medications Current Medications Ondansetron HCl (Zofran Inj) 4 mg Q6H PRN IV NAUSEA AND/OR VOMITING; Start at 18:30 Acetaminophen (Tylenol Tab) 650 mg Q6H PRN PO PAIN LEVEL 1-3 OR FEVER; Start at 18:30 Acetaminophen/ Hydrocodone Bitart ([place] (5/325)) 1 tab Q6H PRN PO MODERATE PAIN LEVEL 4-6; Start 02/15/17 at 18:30 Morphine Sulfate (morphine) 2 mg Q4H PRN IV SEVERE PAIN LEVEL 7-10; Start 02/15 at 18:30 Docusate Sodium (Colace) 100 mg Q12H PRN PO CONSTIPATION; Start 02/15/17 at 18: 30 Zolpidem Tartrate (Ambien) 5 mg QHS PRN PO SLEEP; Start 02/15/17 at 18:30 Enoxaparin Sodium (Lovenox) 40 mg DAILY SC Last administered on 02/16/17 09:02 ; Admin Dose 40 MG; Start 02/16/17 at 09:00 Lorazepam (Ativan) 1 mg Q4H PRN IV AGITATION/ANXIETY Last administered on 07:57; Admin Dose 1 MG; Start 02/15/17 at 18:30 Quetiapine Fumarate (Seroquel) 200 mg QHS PO Last administered on 02/16/17 23: 41; Admin Dose 200 MG; Start 02/16/17 at 21:00 Quetiapine Fumarate (Seroquel) 50 mg QAM PO ; Start 02/17/17 at 09:00 Diphenhydramine HCl (Benadryl) 25 mg Q6 PRN IV ALLERGIC REACTION; Start at 16:30 Hydralazine HCl (Apresoline) 10 mg Q4H PRN IV ELEVATED SYSTOLIC BP Last administered on 02/17/17 21:49; Admin Dose 10 MG; Start 02/17/17 at 21:30 Doxycycline Hyclate (Vibramycin) 100 mg BID PO Last administered on 02/23/17 07 :58; Admin Dose 100 MG; Start 02/21/17 at 16:00 ABRAHAM CRISTINA MD Feb 23, 2017 15:55
[2017-02-23] MEDS: QUETIAPINE 100 MG TAB PO SCH (21:00)
[2017-02-23 21:36] VITALS: BP 128/75; RESP 18
[2017-02-24] MEDS: DOXYCYCLINE 100 MG TAB PO SCH ×3 (00:58→20:49)
[2017-02-24] MEDS: ENOXAPARIN 40 MG/0.4 ML SYG SC SCH (09:00)
[2017-02-24] MEDS: QUETIAPINE 25 MG TAB PO SCH (09:03)
--- NOTE | 2017-02-24 15:38 | PN ---
Date/Time of Note Date/Time of Note DATE: 02/24/17 TIME: 15:36 Assessment/Plan VTE Prophylaxis VTE Prophylaxis Intervention: LMWH Lines/Catheters IV Catheter Type (from [facility]): Saline Lock Urinary Cath still in place: No Assessment/Plan Chief Complaint/Hosp Course The patient is a 66-year-old female with a psychiatric disorder. The patient is unable to provide any significant history secondary to her psychiatric condition, as the patient continues to ramble and is unable to answer any of the questions that were asked, but she clearly does have a psychiatric disorder. Per documentation from [facility], the patient has a history of hypertension. Other than that, there is a history of chronic leg pain, hernia, noncompliance, possible rheumatoid arthritis. Patient has redness, swelling and peeling scaly skin on left lower extremity, that she has been treated with antibiotics for cellulitis. Patient is instrcucted to keep the left lower extremity elevated. The redness and swelling has been significantly improved. She will be discharged from medical service with oral doxycycline. No wound care needed. Patient will be evaluated by psyciatry team for further treatment of psychiatric disorder. Problems: Assessment/Plan 1. Left lower extremity cellulitis, stable, change antibiotics to doxycycline, wound care ordered 2. History of psychiatric problem. awaiting for placement 3. ALLERGY TO SULFA, PENICILLIN, AMOXICILLIN. 4. DVT prophylaxis: lovenox Subjective 24 Hr Interval Summary Free Text/Dictation no event. afebrile Exam/Review of Systems Vital Signs Vitals Vital Signs Date Time Temp Pulse Resp B/P Pulse Ox O2 Delivery O2 Flow Rate FiO2 02/23/17 21:36 98.5 80 18 128/75 97 Intake and Output 02/23/17 02/23/17 02/24/17 15:00 23:00 07:00 Intake Total 1200 ml 520 ml Balance 1200 ml 520 ml Exam Constitutional: alert, oriented, well developed Psych: nl mood/affect, no complaints Head: atraumatic, normocephalic Eyes: EOMI, PERRL, nl conjunctiva, nl lids ENMT: nl external ears & nose, nl lips & teeth, nl nasal mucosa & septum Neck: non-tender, supple Respiratory: clear to auscultation, normal air movement, No congested cough, No crackles/rales, No diminished breath sounds, No intercostal retraction, No labored breathing, No other, No respirations, No tactile fremitus, No wheezing Cardiovascular: nl pulses, regular rate and rhythm, No S3, No S4, No bruits, No diastolic murmur, No edema, No gallop, No irregular rhythm, No jugular venous distention (JVD), No murmurs/extra sounds, No other, No rub, No systolic murmur Gastrointestinal: nl liver, spleen, non-tender, soft, No ascites, No bowel sounds, No distended, No firm, No hepatomegaly, No mass , No other, No rebound or guarding, No splenomegaly, No surgical scars, No tender Musculoskeletal: nl extremities to inspection Extremities: normal pulses, other (left lower extremity redness and swelling resolved), No calf tenderness, No clubbing, No cyanosis, No edema, No palpable cord, No pitting pedal edema, No tenderness Neurological: TAR CHASER II-XII intact, nl mental status, nl speech, nl strength Results Result Diagram: 02/21/17 0710 Medications Medications Current Medications Ondansetron HCl (Zofran Inj) 4 mg Q6H PRN IV NAUSEA AND/OR VOMITING; Start at 18:30 Acetaminophen (Tylenol Tab) 650 mg Q6H PRN PO PAIN LEVEL 1-3 OR FEVER; Start at 18:30 Acetaminophen/ Hydrocodone Bitart ([place] (5/325)) 1 tab Q6H PRN PO MODERATE PAIN LEVEL 4-6; Start 02/15/17 at 18:30 Morphine Sulfate (morphine) 2 mg Q4H PRN IV SEVERE PAIN LEVEL 7-10; Start 02/15 at 18:30 Docusate Sodium (Colace) 100 mg Q12H PRN PO CONSTIPATION; Start 02/15/17 at 18: 30 Zolpidem Tartrate (Ambien) 5 mg QHS PRN PO SLEEP; Start 02/15/17 at 18:30 Enoxaparin Sodium (Lovenox) 40 mg DAILY SC Last administered on 02/16/17 09:02 ; Admin Dose 40 MG; Start 02/16/17 at 09:00 Lorazepam (Ativan) 1 mg Q4H PRN IV AGITATION/ANXIETY Last administered on 07:57; Admin Dose 1 MG; Start 02/15/17 at 18:30 Quetiapine Fumarate (Seroquel) 200 mg QHS PO Last administered on 02/16/17 23: 41; Admin Dose 200 MG; Start 02/16/17 at 21:00 Quetiapine Fumarate (Seroquel) 50 mg QAM PO Last administered on 02/24/17 09:03 ; Admin Dose 50 MG; Start 02/17/17 at 09:00 Diphenhydramine HCl (Benadryl) 25 mg Q6 PRN IV ALLERGIC REACTION; Start at 16:30 Hydralazine HCl (Apresoline) 10 mg Q4H PRN IV ELEVATED SYSTOLIC BP Last administered on 02/17/17 21:49; Admin Dose 10 MG; Start 02/17/17 at 21:30 Doxycycline Hyclate (Vibramycin) 100 mg BID PO Last administered on 02/24/17 09 :02; Admin Dose 100 MG; Start 02/21/17 at 16:00 ABRAHAM CRISTINA MD Feb 24, 2017 15:37
[2017-02-24] MEDS: QUETIAPINE 100 MG TAB PO SCH (20:49)
[2017-02-25 08:04] VITALS: BP 116/74; RESP 17
[2017-02-25] MEDS: ENOXAPARIN 40 MG/0.4 ML SYG SC SCH (09:00)
[2017-02-25] MEDS: QUETIAPINE 25 MG TAB PO SCH (09:00)
[2017-02-25] MEDS: DOXYCYCLINE 100 MG TAB PO SCH ×2 (09:51→20:29)
--- NOTE | 2017-02-25 16:45 | PN ---
Date/Time of Note Date/Time of Note DATE: 02/25/17 TIME: 16:44 Assessment/Plan VTE Prophylaxis VTE Prophylaxis Intervention: LMWH Lines/Catheters IV Catheter Type (from [facility] [place]): Saline Lock Urinary Cath still in place: No Assessment/Plan Chief Complaint/Hosp Course The patient is a 66-year-old female with a psychiatric disorder. The patient is unable to provide any significant history secondary to her psychiatric condition, as the patient continues to ramble and is unable to answer any of the questions that were asked, but she clearly does have a psychiatric disorder. Per documentation from [facility], the patient has a history of hypertension. Other than that, there is a history of chronic leg pain, hernia, noncompliance, possible rheumatoid arthritis. Patient has redness, swelling and peeling scaly skin on left lower extremity, that she has been treated with antibiotics for cellulitis. Patient is instrcucted to keep the left lower extremity elevated. The redness and swelling has been significantly improved. She will be discharged from medical service with oral doxycycline. No wound care needed. Patient will be evaluated by psyciatry team for further treatment of psychiatric disorder. Problems: Assessment/Plan 1. Left lower extremity cellulitis, stable, change antibiotics to doxycycline, wound care ordered 2. History of psychiatric problem. awaiting for placement 3. ALLERGY TO SULFA, PENICILLIN, AMOXICILLIN. 4. DVT prophylaxis: lovenox Subjective 24 Hr Interval Summary Free Text/Dictation afebrile. Exam/Review of Systems Vital Signs Vitals Vital Signs Date Time Temp Pulse Resp B/P Pulse Ox O2 Delivery O2 Flow Rate FiO2 02/25/17 08:04 97.5 63 17 116/74 99 Intake and Output 02/24/17 02/24/17 02/25/17 15:00 23:00 07:00 Intake Total 1200 ml 680 ml Balance 1200 ml 680 ml Exam Constitutional: alert, oriented, well developed Psych: no complaints Head: atraumatic, normocephalic Eyes: EOMI, PERRL, nl conjunctiva, nl lids ENMT: nl external ears & nose, nl lips & teeth, nl nasal mucosa & septum Neck: non-tender, supple Respiratory: clear to auscultation, normal air movement, No congested cough, No crackles/rales, No diminished breath sounds, No intercostal retraction, No labored breathing, No other, No respirations, No tactile fremitus, No wheezing Cardiovascular: nl pulses, regular rate and rhythm, No S3, No S4, No bruits, No diastolic murmur, No edema, No gallop, No irregular rhythm, No jugular venous distention (JVD), No murmurs/extra sounds, No other, No rub, No systolic murmur Gastrointestinal: nl liver, spleen, non-tender, soft, No ascites, No bowel sounds, No distended, No firm, No hepatomegaly, No mass , No other, No rebound or guarding, No splenomegaly, No surgical scars, No tender Musculoskeletal: nl extremities to inspection Extremities: normal pulses, other (less edema and redness on LLE) Neurological: [employer] 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 DEVELOPER II-XII intact, nl mental status, nl speech, nl strength Results Result Diagram: 02/21/17 0710 Medications Medications Current Medications Ondansetron HCl (Zofran Inj) 4 mg Q6H PRN IV NAUSEA AND/OR VOMITING; Start at 18:30 Acetaminophen (Tylenol Tab) 650 mg Q6H PRN PO PAIN LEVEL 1-3 OR FEVER; Start at 18:30 Acetaminophen/ Hydrocodone Bitart ([place] (5/325)) 1 tab Q6H PRN PO MODERATE PAIN LEVEL 4-6; Start 02/15/17 at 18:30 Morphine Sulfate (morphine) 2 mg Q4H PRN IV SEVERE PAIN LEVEL 7-10; Start 02/15 at 18:30 Docusate Sodium (Colace) 100 mg Q12H PRN PO CONSTIPATION; Start 02/15/17 at 18: 30 Zolpidem Tartrate (Ambien) 5 mg QHS PRN PO SLEEP; Start 02/15/17 at 18:30 Enoxaparin Sodium (Lovenox) 40 mg DAILY SC Last administered on 02/16/17 09:02 ; Admin Dose 40 MG; Start 02/16/17 at 09:00 Lorazepam (Ativan) 1 mg Q4H PRN IV AGITATION/ANXIETY Last administered on 07:57; Admin Dose 1 MG; Start 02/15/17 at 18:30 Quetiapine Fumarate (Seroquel) 200 mg QHS PO Last administered on 02/24/17 20: 49; Admin Dose 200 MG; Start 02/16/17 at 21:00 Quetiapine Fumarate (Seroquel) 50 mg QAM PO Last administered on 02/24/17 09:03 ; Admin Dose 50 MG; Start 02/17/17 at 09:00 Diphenhydramine HCl (Benadryl) 25 mg Q6 PRN IV ALLERGIC REACTION; Start at 16:30 Hydralazine HCl (Apresoline) 10 mg Q4H PRN IV ELEVATED SYSTOLIC BP Last administered on 02/17/17 21:49; Admin Dose 10 MG; Start 02/17/17 at 21:30 Doxycycline Hyclate (Vibramycin) 100 mg BID PO Last administered on 02/25/17 09 :51; Admin Dose 100 MG; Start 02/21/17 at 16:00 ABRAHAM CRISTINA MD Feb 25, 2017 16:45
[2017-02-25] MEDS: QUETIAPINE 100 MG TAB PO SCH (20:29)
[2017-02-25 21:01] VITALS: BP 134/84; RESP 19
[2017-02-26 08:11] VITALS: BP 120/72; RESP 19
[2017-02-26] MEDS: DOXYCYCLINE 100 MG TAB PO SCH ×2 (08:59→21:01)
[2017-02-26] MEDS: ENOXAPARIN 40 MG/0.4 ML SYG SC SCH (09:00)
[2017-02-26] MEDS: QUETIAPINE 25 MG TAB PO SCH (09:00)
--- NOTE | 2017-02-26 15:01 | PN ---
Date/Time of Note Date/Time of Note DATE: 02/26/17 TIME: 14:59 Assessment/Plan VTE Prophylaxis VTE Prophylaxis Intervention: LMWH Lines/Catheters IV [facility] (from [facility] Saline Lock Urinary Cath still in place: No Assessment/Plan Chief Complaint/Hosp Course 1. Left lower extremity cellulitis. Continue antibiotics. 2. Unspecified psychosis. Continue antipsychotics. On a 5150 hold. 3. Prediabetes. Hemoglobin A1c 6.0. Monitor. 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 5. Fluids, electrolytes, and nutrition. Regular diet as tolerated. 6. DVT prophylaxis. Subcutaneous Lovenox. 7. Gastrointestinal prophylaxis. Not indicated. 8. Plan. Await psych placement. Case discussed with Dr. Joseph. Problems: Subjective 24 Hr Interval Summary Free Text/Dictation Patient remains afebrile. Exam/Review of Systems Vital Signs Vitals Vital Signs Date Time Temp Pulse Resp B/P Pulse Ox O2 Delivery O2 Flow Rate FiO2 02/26/17 08:11 97.4 69 19 120/72 96 Intake and Output 02/25/17 02/25/17 02/26/17 15:00 23:00 07:00 Intake Total 1020 ml 500 ml Balance 1020 ml 500 ml Exam General: Adequately build 66 year-old female lying in bed in no apparent distress. HEENT: Normocephalic, atraumatic. Eyes: Anicteric sclerae, conjunctivae clear. ENT: Nasal septum midline, oral mucosa moist. Neck supple, no JVD noticed. Respiratory: Bilaterally clear breath sounds. No use of accessory muscles of respiration. No adventitious breath sounds. Cardiovascular: S1, S2 heard. No murmurs or gallops. Abdomen: Soft, nontender, and nondistended. Bowel sounds positive in all 4 quadrants. Genitourinary: Deferred. Extremities: No cyanosis, no clubbing. Trace bilateral pedal edema. Peripheral pulses palpable. Neurologic: Cranial nerves II through XII grossly intact. The patient is awake, alert, and oriented. Psychiatric: Tangential thought process. Derealization and depersonalization. Skin: Left lower extremity scaly lesions with surrounding erythema. Medications Medications Current Medications Ondansetron HCl (Zofran Inj) 4 mg Q6H PRN IV NAUSEA AND/OR VOMITING; Start at 18:30 Acetaminophen (Tylenol Tab) 650 mg Q6H PRN PO PAIN LEVEL 1-3 OR FEVER; Start at 18:30 Acetaminophen/ Hydrocodone Bitart ([place] (5/325)) 1 tab Q6H PRN PO MODERATE PAIN LEVEL 4-6; Start 02/15/17 at 18:30 Morphine Sulfate (morphine) 2 mg Q4H PRN IV SEVERE PAIN LEVEL 7-10; Start 02/15 at 18:30 Docusate Sodium (Colace) 100 mg Q12H PRN PO CONSTIPATION; Start 02/15/17 at 18: 30 Zolpidem Tartrate (Ambien) 5 mg QHS PRN PO SLEEP; Start 02/15/17 at 18:30 Enoxaparin Sodium (Lovenox) 40 mg DAILY SC Last administered on 02/16/17 09:02 ; Admin Dose 40 MG; Start 02/16/17 at 09:00 Lorazepam (Ativan) 1 mg Q4H PRN IV AGITATION/ANXIETY Last administered on 07:57; Admin Dose 1 MG; Start 02/15/17 at 18:30 Quetiapine Fumarate (Seroquel) 200 mg QHS PO Last administered on 02/24/17 20: 49; Admin Dose 200 MG; Start 02/16/17 at 21:00 Quetiapine Fumarate (Seroquel) 50 mg QAM PO Last administered on 02/24/17 09:03 ; Admin Dose 50 MG; Start 02/17/17 at 09:00 Diphenhydramine HCl (Benadryl) 25 mg Q6 PRN IV ALLERGIC REACTION; Start at 16:30 Hydralazine HCl (Apresoline) 10 mg Q4H PRN IV ELEVATED SYSTOLIC BP Last administered on 02/17/17 21:49; Admin Dose 10 MG; Start 02/17/17 at 21:30 Doxycycline Hyclate (Vibramycin) 100 mg BID PO Last administered on 02/26/17 08 :59; Admin Dose 100 MG; Start 02/21/17 at 16:00 JEAN HARDEN NP Feb 26, 2017 15:01
[2017-02-26] MEDS: QUETIAPINE 100 MG TAB PO SCH (21:00)
[2017-02-26 22:09] VITALS: BP 119/75; RESP 19
[2017-02-27 08:00] VITALS: BP 113/70; RESP 18
[2017-02-27] MEDS: ENOXAPARIN 40 MG/0.4 ML SYG SC SCH (08:35)
[2017-02-27] MEDS: QUETIAPINE 25 MG TAB PO SCH (08:35)
[2017-02-27] MEDS: DOXYCYCLINE 100 MG TAB PO SCH ×2 (08:37→21:00)
--- NOTE | 2017-02-27 11:05 | PN ---
Date/Time of Note Date/Time of Note DATE: 02/27/17 TIME: 11:05 Assessment/Plan VTE Prophylaxis VTE Prophylaxis Intervention: LMWH Lines/Catheters IV Catheter Type (from [facility]): Saline Lock Urinary Cath still in place: No Assessment/Plan Chief Complaint/Hosp Course 1. Left lower extremity cellulitis. Continue antibiotics. 2. Unspecified psychosis. Continue antipsychotics. On a 5150 hold. 3. Prediabetes. Hemoglobin A1c 6.0. Monitor. 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 5. Fluids, electrolytes, and nutrition. Regular diet as tolerated. 6. DVT prophylaxis. Subcutaneous Lovenox. 7. Gastrointestinal prophylaxis. Not indicated. 8. Plan. Await psych placement. Case discussed with Dr. Joseph. Problems: Subjective 24 Hr Interval Summary Free Text/Dictation Patient has no peripheral IV access. Patient refusing IV. Exam/Review of Systems Vital Signs Vitals Vital Signs Date Time Temp Pulse Resp B/P Pulse Ox O2 Delivery O2 Flow Rate FiO2 02/27/17 08:00 97.6 70 18 113/70 99 Intake and Output 02/26/17 02/26/17 02/27/17 15:00 23:00 07:00 Intake Total 1040 ml 400 ml Balance 1040 ml 400 ml Exam General: Adequately build 66 year-old female lying in bed in no apparent distress. HEENT: Normocephalic, atraumatic. Eyes: Anicteric sclerae, conjunctivae clear. ENT: Nasal septum midline, oral mucosa moist. Neck supple, no JVD noticed. Respiratory: Bilaterally clear breath sounds. No use of accessory muscles of respiration. No adventitious breath sounds. Cardiovascular: S1, S2 heard. No murmurs or gallops. Abdomen: Soft, nontender, and nondistended. Bowel sounds positive in all 4 quadrants. Genitourinary: Deferred. Extremities: No cyanosis, no clubbing. Trace bilateral pedal edema. Peripheral pulses palpable. Neurologic: Cranial nerves II through XII grossly intact. The patient is awake, alert, and oriented. Psychiatric: Tangential thought process. Derealization and depersonalization. Skin: Left lower extremity scaly lesions with surrounding erythema. Medications Medications Current Medications Ondansetron HCl (Zofran Inj) 4 mg Q6H PRN IV NAUSEA AND/OR VOMITING; Start at 18:30 Acetaminophen (Tylenol Tab) 650 mg Q6H PRN PO PAIN LEVEL 1-3 OR FEVER; Start at 18:30 Acetaminophen/ Hydrocodone Bitart ([place] (5/325)) 1 tab Q6H PRN PO MODERATE PAIN LEVEL 4-6; Start 02/15/17 at 18:30 Morphine Sulfate (morphine) 2 mg Q4H PRN IV SEVERE PAIN LEVEL 7-10; Start 02/15 at 18:30 Docusate Sodium (Colace) 100 mg Q12H PRN PO CONSTIPATION; Start 02/15/17 at 18: 30 Zolpidem Tartrate (Ambien) 5 mg QHS PRN PO SLEEP; Start 02/15/17 at 18:30 Enoxaparin Sodium (Lovenox) 40 mg DAILY SC Last administered on 02/16/17 09:02 ; Admin Dose 40 MG; Start 02/16/17 at 09:00 Lorazepam (Ativan) 1 mg Q4H PRN IV AGITATION/ANXIETY Last administered on 07:57; Admin Dose 1 MG; Start 02/15/17 at 18:30 Quetiapine Fumarate (Seroquel) 200 mg QHS PO Last administered on 02/24/17 20: 49; Admin Dose 200 MG; Start 02/16/17 at 21:00 Quetiapine Fumarate (Seroquel) 50 mg QAM PO Last administered on 02/24/17 09:03 ; Admin Dose 50 MG; Start 02/17/17 at 09:00 Diphenhydramine HCl (Benadryl) 25 mg Q6 PRN IV ALLERGIC REACTION; Start at 16:30 Hydralazine HCl (Apresoline) 10 mg Q4H PRN IV ELEVATED SYSTOLIC BP Last administered on 02/17/17 21:49; Admin Dose 10 MG; Start 02/17/17 at 21:30 Doxycycline Hyclate (Vibramycin) 100 mg BID PO Last administered on 02/27/17 08 :37; Admin Dose 100 MG; Start 02/21/17 at 16:00 JEAN HARDEN NP Feb 27, 2017 11:05
--- NOTE | 2017-02-27 14:39 | CONS ---
Date/Time of Note Date/Time of Note DATE: 02/27/17 TIME: 14:29 Assessment/Plan Assessment/Plan Chief Complaint/Hosp Course ID PROGRESS NOTE 24H INTERVAL SUMMARY * 66 yo Homeless F, awaiting placement in Psych facility, on ABX for LEXT cellultis * No fevers, VSS, NAD * Awake, calm, resting comfortably, no new issues, no c/o * ANTIMICROBIALS: Doxycycline, s/p vancomycin and Rocephin. * MICROBIOLOGY: Nares swab came back negative for MRSA. PHYSICAL EXAMINATION: GENERAL: 28 yo F, calm watching tv, no fevers, VSS HEENT: Unremarkable except for facial erythema/sun exposure & eyeglasses NECK: Supple. CHEST: Rise symmetrical. Breath sounds clear. HEART: S1, S2. ABDOMEN: Soft, bowel sounds present. EXTREMITIES: Left lower extremity edema, erythema, some blisters. ID ASSESSMENT: 1. Left lower extremity cellulitis. 2. History of psychiatric problem-> currently calm on Seroquel 3. Homelessness. (-) MRSA NARES Screen ABX ALLERGIES: SULFA, PCN CURRENT ABX: Doxycycline #6 ID PLAN * => Clinically stable. LLE looks better. Continue abx. Keep left lower extremity elevated. * => DC/TNS on ABX x total 14 days . . Problems: Consultation Date/Type/Reason Admit Date/Time Feb 15, 2017 at 16:49 Initial Consult Date Type of Consultation: id Exam/Review of Systems Vital Signs Vitals Vital Signs Date Time Temp Pulse Resp B/P Pulse Ox O2 Delivery O2 Flow Rate FiO2 02/27/17 08:00 97.6 70 18 113/70 99 Intake and Output 02/26/17 02/26/17 02/27/17 15:00 23:00 07:00 Intake Total 1040 ml 400 ml Balance 1040 ml 400 ml Medications Medications Current Medications Ondansetron HCl (Zofran Inj) 4 mg Q6H PRN IV NAUSEA AND/OR VOMITING; Start at 18:30 Acetaminophen (Tylenol Tab) 650 mg Q6H PRN PO PAIN LEVEL 1-3 OR FEVER; Start at 18:30 Acetaminophen/ Hydrocodone Bitart ([place] (5/325)) 1 tab Q6H PRN PO MODERATE PAIN LEVEL 4-6; Start 02/15/17 at 18:30 Morphine Sulfate (morphine) 2 mg Q4H PRN IV SEVERE PAIN LEVEL 7-10; Start 02/15 at 18:30 Docusate Sodium (Colace) 100 mg Q12H PRN PO CONSTIPATION; Start 02/15/17 at 18: 30 Zolpidem Tartrate (Ambien) 5 mg QHS PRN PO SLEEP; Start 02/15/17 at 18:30 Enoxaparin Sodium (Lovenox) 40 mg DAILY SC Last administered on 02/16/17 09:02 ; Admin Dose 40 MG; Start 02/16/17 at 09:00 Lorazepam (Ativan) 1 mg Q4H PRN IV AGITATION/ANXIETY Last administered on 07:57; Admin Dose 1 MG; Start 02/15/17 at 18:30 Quetiapine Fumarate (Seroquel) 200 mg QHS PO Last administered on 02/24/17 20: 49; Admin Dose 200 MG; Start 02/16/17 at 21:00 Quetiapine Fumarate (Seroquel) 50 mg QAM PO Last administered on 02/24/17 09:03 ; Admin Dose 50 MG; Start 02/17/17 at 09:00 Diphenhydramine HCl (Benadryl) 25 mg Q6 PRN IV ALLERGIC REACTION; Start at 16:30 Hydralazine HCl (Apresoline) 10 mg Q4H PRN IV ELEVATED SYSTOLIC BP Last administered on 02/17/17 21:49; Admin Dose 10 MG; Start 02/17/17 at 21:30 Doxycycline Hyclate (Vibramycin) 100 mg BID PO Last administered on 02/27/17 08 :37; Admin Dose 100 MG; Start 02/21/17 at 16:00 JASON SANDHU NP Feb 27, 2017 14:39
[2017-02-27] MEDS: QUETIAPINE 100 MG TAB PO SCH (21:00)
[2017-02-27 21:29] VITALS: BP 121/75; RESP 19
[2017-02-28 07:55] VITALS: BP 106/71; RESP 18
[2017-02-28] MEDS: ENOXAPARIN 40 MG/0.4 ML SYG SC SCH (09:00)
[2017-02-28] MEDS: QUETIAPINE 25 MG TAB PO SCH (09:00)
[2017-02-28] MEDS: DOXYCYCLINE 100 MG TAB PO SCH ×2 (09:25→20:52)
--- NOTE | 2017-02-28 10:41 | PN ---
Date/Time of Note Date/Time of Note DATE: 02/28/17 TIME: 10:29 Assessment/Plan VTE Prophylaxis VTE Prophylaxis Intervention: LMWH Lines/Catheters IV Catheter Type (from Nrsg): Saline Lock Urinary Cath still in place: No Assessment/Plan Chief Complaint/Hosp Course Assessment and plan 1. Left lower extremity cellulitis. Continue on antibiotics for now. Appears to be improving 2. Reported unspecified psychosis. Continue antipsychotics. Patient currently on 5150 hold. Awaiting psychiatric placement 3. 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 Tentative plan for psychiatric placement DVT prophylaxis: Lovenox Disposition and plan: Stable at present. Awaiting psych facility placement. We' ll follow-up Discussed plan of care with Dr. Reid Problems: Subjective 24 Hr Interval Summary Free Text/Dictation Agitated during visit. No apparent distress Exam/Review of Systems Vital Signs Vitals Vital Signs Date Time Temp Pulse Resp B/P Pulse Ox O2 Delivery O2 Flow Rate FiO2 02/28/17 07:55 98.2 60 18 106/71 96 Intake and Output 02/27/17 02/27/17 02/28/17 15:00 23:00 07:00 Intake Total 810 ml 820 ml Balance 810 ml 820 ml Exam General: Agitated during visit. Eyes: pupils equal round, Anicteric sclera Neck: Supple nontender, no JVD Cardiac: Remains regular rate Pulmonary: No coarse rhonchi or breathing auscultated GI: Abdomen soft nontender nondistended, bowel sounds active Extremities: Edema bilateral lower extremities with erythema. Also noted scabs and scaling of bilateral lower extremities Skin: Scaliness of bilateral lower extremities with noted erythema Neurologic: Alert to person place and time and situation Medications Medications Current Medications Ondansetron HCl (Zofran Inj) 4 mg Q6H PRN IV NAUSEA AND/OR VOMITING; Start at 18:30 Acetaminophen (Tylenol Tab) 650 mg Q6H PRN PO PAIN LEVEL 1-3 OR FEVER; Start at 18:30 Acetaminophen/ Hydrocodone Bitart ([place] (5/325)) 1 tab Q6H PRN PO MODERATE PAIN LEVEL 4-6; Start 02/15/17 at 18:30 Morphine Sulfate (morphine) 2 mg Q4H PRN IV SEVERE PAIN LEVEL 7-10; Start 02/15 at 18:30 Docusate Sodium (Colace) 100 mg Q12H PRN PO CONSTIPATION; Start 02/15/17 at 18: 30 Zolpidem Tartrate (Ambien) 5 mg QHS PRN PO SLEEP; Start 02/15/17 at 18:30 Enoxaparin Sodium (Lovenox) 40 mg DAILY SC Last administered on 02/16/17 09:02 ; Admin Dose 40 MG; Start 02/16/17 at 09:00 Lorazepam (Ativan) 1 mg Q4H PRN IV AGITATION/ANXIETY Last administered on 07:57; Admin Dose 1 MG; Start 02/15/17 at 18:30 Quetiapine Fumarate (Seroquel) 200 mg QHS PO Last administered on 02/24/17 20: 49; Admin Dose 200 MG; Start 02/16/17 at 21:00 Quetiapine Fumarate (Seroquel) 50 mg QAM PO Last administered on 02/24/17 09:03 ; Admin Dose 50 MG; Start 02/17/17 at 09:00 Diphenhydramine HCl (Benadryl) 25 mg Q6 PRN IV ALLERGIC REACTION; Start at 16:30 Hydralazine HCl (Apresoline) 10 mg Q4H PRN IV ELEVATED SYSTOLIC BP Last administered on 02/17/17 21:49; Admin Dose 10 MG; Start 02/17/17 at 21:30 Doxycycline Hyclate (Vibramycin) 100 mg BID PO Last administered on 02/28/17 09:25; Admin Dose 100 MG; Start 02/21/17 at 16:00 SLOANE GRAY Feb 28, 2017 10:41
--- NOTE | 2017-02-28 17:52 | PN ---
DATE: 02/28/2017 SUBJECTIVE: Infectious disease progress note. No acute changes overnight. No fevers. Patient is alert, lying comfortably in bed. She is on oral doxycycline. PHYSICAL EXAMINATION: GENERAL: This is a well-developed, elderly woman who is alert, in no distress. HEENT: Head atraumatic, normocephalic. Sclerae anicteric. Buccal mucosa pink. NECK: Supple. CHEST: Rise symmetrical. Breath sounds clear. HEART: S1, S2. ABDOMEN: Soft. Bowel tones present. ASSESSMENT: 1. Resolving left lower extremity cellulitis. 2. History of psychiatric issues. 3. Homelessness. PLAN: The patient remains stable, continues to improve. Continue present care. Keep left lower ex tremity elevated. Pending discharge planning. Dictated By: NITA RODRIGUEZ AUTOMOTIVE PAINTER HELPER for [employer] Conf#: [id number] DID#: [id number]
[2017-02-28] MEDS: QUETIAPINE 100 MG TAB PO SCH (20:48)
[2017-02-28 21:23] VITALS: BP 109/77; RESP 18
[2017-03-01 07:08] VITALS: BP 123/79; RESP 18
[2017-03-01] MEDS: QUETIAPINE 25 MG TAB PO SCH (09:00)
[2017-03-01] MEDS: ENOXAPARIN 40 MG/0.4 ML SYG SC SCH (09:00)
[2017-03-01] MEDS: DOXYCYCLINE 100 MG TAB PO SCH ×2 (09:56→21:14)
--- NOTE | 2017-03-01 10:41 | PN ---
Date/Time of Note Date/Time of Note DATE: 03/01/17 TIME: 10:39 Assessment/Plan VTE Prophylaxis VTE Prophylaxis Intervention: LMWH Lines/Catheters IV Catheter Type (from Nrsg): Saline Lock Urinary Cath still in place: No Assessment/Plan Chief Complaint/Hosp Course Assessment and plan 1. Left lower extremity cellulitis. Continue on antibiotics for now. Appears to be improving. Continue with ID recommendations 2. Reported unspecified psychosis. Continue antipsychotics. Patient currently on 5150 hold. Awaiting psychiatric placement 3. 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 Tentative plan for psychiatric placement. We'll follow-up DVT prophylaxis: Lovenox Disposition and plan: Stable at present. Awaiting psych facility placement. Continue supportive care for now Discussed plan of care with Dr. Reid Problems: Subjective 24 Hr Interval Summary Free Text/Dictation no s/s of distress Exam/Review of Systems Vital Signs Vitals Vital Signs Date Time Temp Pulse Resp B/P Pulse Ox O2 Delivery O2 Flow Rate FiO2 03/01/17 07:08 97.6 53 18 123/79 97 Intake and Output 02/28/17 02/28/17 03/01/17 14:59 22:59 06:59 Intake Total 1090 ml 240 ml Balance 1090 ml 240 ml Exam General: no s/s of distress Eyes: pupils equal round, Anicteric sclera Neck: No JVD today Cardiac: Remains regular rate Pulmonary: No adventitious lung sounds GI: Abdomen soft nontender nondistended, bowel sounds active Extremities: Edema bilateral lower extremities with erythema. Also noted scabs and scaling of bilateral lower extremities. Unchanged Skin: Scaliness of bilateral lower extremities with noted erythema. Still today Neurologic: Alert to person place and time and situation Medications Medications Current Medications Ondansetron HCl (Zofran Inj) 4 mg Q6H PRN IV NAUSEA AND/OR VOMITING; Start at 18:30 Acetaminophen (Tylenol Tab) 650 mg Q6H PRN PO PAIN LEVEL 1-3 OR FEVER; Start at 18:30 Acetaminophen/ Hydrocodone Bitart ([place] (5/325)) 1 tab Q6H PRN PO MODERATE PAIN LEVEL 4-6; Start 02/15/17 at 18:30 Morphine Sulfate (morphine) 2 mg Q4H PRN IV SEVERE PAIN LEVEL 7-10; Start 02/15 at 18:30 Docusate Sodium (Colace) 100 mg Q12H PRN PO CONSTIPATION; Start 02/15/17 at 18: 30 Zolpidem Tartrate (Ambien) 5 mg QHS PRN PO SLEEP; Start 02/15/17 at 18:30 Enoxaparin Sodium (Lovenox) 40 mg DAILY SC Last administered on 02/16/17 09:02 ; Admin Dose 40 MG; Start 02/16/17 at 09:00 Lorazepam (Ativan) 1 mg Q4H PRN IV AGITATION/ANXIETY Last administered on 07:57; Admin Dose 1 MG; Start 02/15/17 at 18:30 Quetiapine Fumarate (Seroquel) 200 mg QHS PO Last administered on 02/24/17 20: 49; Admin Dose 200 MG; Start 02/16/17 at 21:00 Quetiapine Fumarate (Seroquel) 50 mg QAM PO Last administered on 02/24/17 09:03 ; Admin Dose 50 MG; Start 02/17/17 at 09:00 Diphenhydramine HCl (Benadryl) 25 mg Q6 PRN IV ALLERGIC REACTION; Start at 16:30 Hydralazine HCl (Apresoline) 10 mg Q4H PRN IV ELEVATED SYSTOLIC BP Last administered on 02/17/17 21:49; Admin Dose 10 MG; Start 02/17/17 at 21:30 Doxycycline Hyclate (Vibramycin) 100 mg BID PO Last administered on 03/01/17 09:56; Admin Dose 100 MG; Start 02/21/17 at 16:00 SLOANE GRAY Mar 01, 2017 10:41
[2017-03-01] MEDS: QUETIAPINE 100 MG TAB PO SCH (21:00)
[2017-03-01 21:33] VITALS: BP 125/84; RESP 18
[2017-03-02 08:00] VITALS: BP 118/64; RESP 20
[2017-03-02] MEDS: DOXYCYCLINE 100 MG TAB PO SCH ×2 (08:34→20:22)
[2017-03-02] MEDS: QUETIAPINE 25 MG TAB PO SCH (08:45)
[2017-03-02] MEDS: ENOXAPARIN 40 MG/0.4 ML SYG SC SCH (08:46)
--- NOTE | 2017-03-02 10:47 | PN ---
Date/Time of Note Date/Time of Note DATE: 03/02/17 TIME: 10:45 Assessment/Plan VTE Prophylaxis VTE Prophylaxis Intervention: LMWH Lines/Catheters IV Catheter Type (from Nrsg): Saline Lock Urinary Cath still in place: No Assessment/Plan Chief Complaint/Hosp Course Assessment and plan 1. Left lower extremity cellulitis. Continue on antibiotics for now. Appears to be improving. Continue with ID recommendations. Stable 2. Reported unspecified psychosis. Continue antipsychotics. Patient currently on 5150 hold. Awaiting psychiatric placement 3. 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 Tentative plan for psychiatric placement. We'll follow-up DVT prophylaxis: Lovenox Disposition and plan: Stable at present. Awaiting psych facility placement. Continue supportive care for now. Continue on antibiotics. Discussed plan of care with Dr. Reid Problems: Subjective 24 Hr Interval Summary Free Text/Dictation Agitated during visit. No apparent distress Exam/Review of Systems Vital Signs Vitals Vital Signs Date Time Temp Pulse Resp B/P Pulse Ox O2 Delivery O2 Flow Rate FiO2 03/02/17 08:00 98.8 62 20 118/64 96 Intake and Output 03/01/17 03/01/17 03/02/17 14:59 22:59 06:59 Intake Total 825 ml 480 ml Balance 825 ml 480 ml Exam General: Slightly agitated during visit Eyes: pupils equal round, Anicteric sclera Neck: Supple nontender, no JVD Cardiac: Remains regular rate Pulmonary: No wheezing or rhonchi GI: Soft nontender Extremities: No edema seen bilateral lower extremities and scaly skin with erythema but less today Skin: Still with scaly skin on bilateral lower extremities and erythema. Less Neurologic: Alert to person place and time and situation Medications Medications Current Medications Ondansetron HCl (Zofran Inj) 4 mg Q6H PRN IV NAUSEA AND/OR VOMITING; Start at 18:30 Acetaminophen (Tylenol Tab) 650 mg Q6H PRN PO PAIN LEVEL 1-3 OR FEVER; Start at 18:30 Acetaminophen/ Hydrocodone Bitart ([place] (5/325)) 1 tab Q6H PRN PO MODERATE PAIN LEVEL 4-6; Start 02/15/17 at 18:30 Morphine Sulfate (morphine) 2 mg Q4H PRN IV SEVERE PAIN LEVEL 7-10; Start 02/15 at 18:30 Docusate Sodium (Colace) 100 mg Q12H PRN PO CONSTIPATION; Start 02/15/17 at 18: 30 Zolpidem Tartrate (Ambien) 5 mg QHS PRN PO SLEEP; Start 02/15/17 at 18:30 Enoxaparin Sodium (Lovenox) 40 mg DAILY SC Last administered on 02/16/17 09:02 ; Admin Dose 40 MG; Start 02/16/17 at 09:00 Lorazepam (Ativan) 1 mg Q4H PRN IV AGITATION/ANXIETY Last administered on 07:57; Admin Dose 1 MG; Start 02/15/17 at 18:30 Quetiapine Fumarate (Seroquel) 200 mg QHS PO Last administered on 02/24/17 20: 49; Admin Dose 200 MG; Start 02/16/17 at 21:00 Quetiapine Fumarate (Seroquel) 50 mg QAM PO Last administered on 02/24/17 09:03 ; Admin Dose 50 MG; Start 02/17/17 at 09:00 Diphenhydramine HCl (Benadryl) 25 mg Q6 PRN IV ALLERGIC REACTION; Start at 16:30 Hydralazine HCl (Apresoline) 10 mg Q4H PRN IV ELEVATED SYSTOLIC BP Last administered on 02/17/17 21:49; Admin Dose 10 MG; Start 02/17/17 at 21:30 Doxycycline Hyclate (Vibramycin) 100 mg BID PO Last administered on 03/02/17 08:34; Admin Dose 100 MG; Start 02/21/17 at 16:00 SLOANE GRAY Mar 02, 2017 10:47
--- NOTE | 2017-03-02 15:20 | CONS ---
Date/Time of Note Date/Time of Note DATE: 03/02/17 TIME: 15:19 Assessment/Plan Assessment/Plan Chief Complaint/Hosp Course SUBJECTIVE: No acute changes. Alert, nad. No fevers ANTIMICROBIALS: Doxycycline, s/p vancomycin and Rocephin. MICROBIOLOGY: Nares swab came back negative for MRSA. PHYSICAL EXAMINATION: GENERAL: Fragile, elderly woman in no distress. HEENT: Head atraumatic, normocephalic. Sclerae anicteric. Buccal mucosa pink. NECK: Supple. CHEST: Rise symmetrical. Breath sounds clear. HEART: S1, S2. ABDOMEN: Soft, bowel sounds present. EXTREMITIES: Left lower extremity edema, erythema, some blisters. ASSESSMENT: 1. Left lower extremity cellulitis with chronic wounds==> dried out. 2. History of psychiatric problem. 3. Homelessness. 4. ALLERGY TO SULFA, PENICILLIN, AMOXICILLIN. PLAN: Clinically stable. LLE with dry scabs, erythema improving. Continue abx. Keep left lower extremity elevated. DW staff Problems: Consultation Date/Type/Reason Admit Date/Time Feb 15, 2017 at 16:49 Type of Consultation: id Exam/Review of Systems Vital Signs Vitals Vital Signs Date Time Temp Pulse Resp B/P Pulse Ox O2 Delivery O2 Flow Rate FiO2 03/02/17 08:00 98.8 62 20 118/64 96 Intake and Output 03/01/17 03/01/17 03/02/17 15:00 23:00 07:00 Intake Total 825 ml 480 ml Balance 825 ml 480 ml Medications Medications Current Medications Ondansetron HCl (Zofran Inj) 4 mg Q6H PRN IV NAUSEA AND/OR VOMITING; Start at 18:30 Acetaminophen (Tylenol Tab) 650 mg Q6H PRN PO PAIN LEVEL 1-3 OR FEVER; Start at 18:30 Acetaminophen/ Hydrocodone Bitart ([place] (5/325)) 1 tab Q6H PRN PO MODERATE PAIN LEVEL 4-6; Start 02/15/17 at 18:30 Morphine Sulfate (morphine) 2 mg Q4H PRN IV SEVERE PAIN LEVEL 7-10; Start 02/15 at 18:30 Docusate Sodium (Colace) 100 mg Q12H PRN PO CONSTIPATION; Start 02/15/17 at 18: 30 Zolpidem Tartrate (Ambien) 5 mg QHS PRN PO SLEEP; Start 02/15/17 at 18:30 Enoxaparin Sodium (Lovenox) 40 mg DAILY SC Last administered on 02/16/17 09:02 ; Admin Dose 40 MG; Start 02/16/17 at 09:00 Lorazepam (Ativan) 1 mg Q4H PRN IV AGITATION/ANXIETY Last administered on 07:57; Admin Dose 1 MG; Start 02/15/17 at 18:30 Quetiapine Fumarate (Seroquel) 200 mg QHS PO Last administered on 02/24/17 20: 49; Admin Dose 200 MG; Start 02/16/17 at 21:00 Quetiapine Fumarate (Seroquel) 50 mg QAM PO Last administered on 02/24/17 09:03 ; Admin Dose 50 MG; Start 02/17/17 at 09:00 Diphenhydramine HCl (Benadryl) 25 mg Q6 PRN IV ALLERGIC REACTION; Start at 16:30 Hydralazine HCl (Apresoline) 10 mg Q4H PRN IV ELEVATED SYSTOLIC BP Last administered on 02/17/17 21:49; Admin Dose 10 MG; Start 02/17/17 at 21:30 Doxycycline Hyclate (Vibramycin) 100 mg BID PO Last administered on 03/02/17 08:34; Admin Dose 100 MG; Start 02/21/17 at 16:00 NITA RODRIGUEZ NP Mar 02, 2017 15:20
[2017-03-02] MEDS: QUETIAPINE 100 MG TAB PO SCH (20:23)
[2017-03-02 21:00] VITALS: BP 131/83; RESP 19
[2017-03-03 07:29] VITALS: BP 128/68; RESP 18
[2017-03-03] MEDS: DOXYCYCLINE 100 MG TAB PO SCH ×2 (09:00→20:03)
[2017-03-03] MEDS: QUETIAPINE 25 MG TAB PO SCH (09:00)
[2017-03-03] MEDS: ENOXAPARIN 40 MG/0.4 ML SYG SC SCH (09:00)
--- NOTE | 2017-03-03 10:40 | PN ---
Date/Time of Note Date/Time of Note DATE: 03/03/17 TIME: 10:38 Assessment/Plan VTE Prophylaxis VTE Prophylaxis Intervention: LMWH Lines/Catheters IV Catheter Type (from Nrsg): Saline Lock Urinary Cath still in place: No Assessment/Plan Chief Complaint/Hosp Course Assessment and plan 1. Left lower extremity cellulitis. Continue on antibiotics for now. Appears to be improving. Continue with ID recommendations. Stable. Continue regimen 2. Reported unspecified psychosis. Continue antipsychotics. Patient currently on 5150 hold. Awaiting psychiatric placement 3. 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 Tentative plan for psychiatric placement. We'll follow-up DVT prophylaxis: Lovenox Disposition and plan: Stable at present. Awaiting psych facility placement. Continue supportive care for now. Continue on antibiotics. Follow-up with case management Discussed plan of care with Dr. Reid Problems: Subjective 24 Hr Interval Summary Free Text/Dictation no specific complaints at this time Exam/Review of Systems Vital Signs Vitals Vital Signs Date Time Temp Pulse Resp B/P Pulse Ox O2 Delivery O2 Flow Rate FiO2 03/03/17 07:29 97.8 50 18 128/68 96 Intake and Output 03/02/17 03/02/17 03/03/17 15:00 23:00 07:00 Intake Total 1200 ml 500 ml Balance 1200 ml 500 ml Exam General: comfortable. no s/s of distress Eyes: pupils equal round, Anicteric sclera Neck: no JVD Cardiac: s1, s2 Pulmonary: no accessory muscle use. GI: Soft nontender Extremities: No edema seen bilateral lower extremities and scaly skin with erythema , appears improving Skin: Still with scaly skin on bilateral lower extremities and erythema, improving appearance Neurologic: Alert to person place and time and situation Medications Medications Current Medications Ondansetron HCl (Zofran Inj) 4 mg Q6H PRN IV NAUSEA AND/OR VOMITING; Start at 18:30 Acetaminophen (Tylenol Tab) 650 mg Q6H PRN PO PAIN LEVEL 1-3 OR FEVER; Start at 18:30 Acetaminophen/ Hydrocodone Bitart ([place] (5/325)) 1 tab Q6H PRN PO MODERATE PAIN LEVEL 4-6; Start 02/15/17 at 18:30 Morphine Sulfate (morphine) 2 mg Q4H PRN IV SEVERE PAIN LEVEL 7-10; Start 02/15 at 18:30 Docusate Sodium (Colace) 100 mg Q12H PRN PO CONSTIPATION; Start 02/15/17 at 18: 30 Zolpidem Tartrate (Ambien) 5 mg QHS PRN PO SLEEP; Start 02/15/17 at 18:30 Enoxaparin Sodium (Lovenox) 40 mg DAILY SC Last administered on 02/16/17 09:02 ; Admin Dose 40 MG; Start 02/16/17 at 09:00 Lorazepam (Ativan) 1 mg Q4H PRN IV AGITATION/ANXIETY Last administered on 07:57; Admin Dose 1 MG; Start 02/15/17 at 18:30 Quetiapine Fumarate (Seroquel) 200 mg QHS PO Last administered on 02/24/17 20: 49; Admin Dose 200 MG; Start 02/16/17 at 21:00 Quetiapine Fumarate (Seroquel) 50 mg QAM PO Last administered on 02/24/17 09:03 ; Admin Dose 50 MG; Start 02/17/17 at 09:00 Diphenhydramine HCl (Benadryl) 25 mg Q6 PRN IV ALLERGIC REACTION; Start at 16:30 Hydralazine HCl (Apresoline) 10 mg Q4H PRN IV ELEVATED SYSTOLIC BP Last administered on 02/17/17 21:49; Admin Dose 10 MG; Start 02/17/17 at 21:30 Doxycycline Hyclate (Vibramycin) 100 mg BID PO Last administered on 03/02/17 20:22; Admin Dose 100 MG; Start 02/21/17 at 16:00 SLOANE GRAY Mar 03, 2017 10:40
--- NOTE | 2017-03-03 14:36 | CONS ---
Date/Time of Note Date/Time of Note DATE: 03/03/17 TIME: 14:36 Assessment/Plan Assessment/Plan Chief Complaint/Hosp Course SUBJECTIVE: No acute changes. No fevers. Awake, denies pain ANTIMICROBIALS: Doxycycline, s/p vancomycin and Rocephin. MICROBIOLOGY: Nares swab came back negative for MRSA. PHYSICAL EXAMINATION: GENERAL: Fragile, elderly woman in no distress. HEENT: Head atraumatic, normocephalic. Sclerae anicteric. Buccal mucosa pink. NECK: Supple. CHEST: Rise symmetrical. Breath sounds clear. HEART: S1, S2. ABDOMEN: Soft, bowel sounds present. EXTREMITIES: Left lower extremity edema, erythema, some blisters. ASSESSMENT: 1. Left lower extremity cellulitis with chronic wounds==> dried out. 2. History of psychiatric problem. 3. Homelessness. 4. ALLERGY TO SULFA, PENICILLIN, AMOXICILLIN. PLAN: Clinically stable. Continue abx. Keep left lower extremity elevated. DW staff Problems: Consultation Date/Type/Reason Admit Date/Time Feb 15, 2017 at 16:49 Type of Consultation: id Exam/Review of Systems Vital Signs Vitals Vital Signs Date Time Temp Pulse Resp B/P Pulse Ox O2 Delivery O2 Flow Rate FiO2 03/03/17 07:29 97.8 50 18 128/68 96 Intake and Output 03/02/17 03/02/17 03/03/17 15:00 23:00 07:00 Intake Total 1200 ml 500 ml Balance 1200 ml 500 ml Medications Medications Current Medications Ondansetron HCl (Zofran Inj) 4 mg Q6H PRN IV NAUSEA AND/OR VOMITING; Start at 18:30 Acetaminophen (Tylenol Tab) 650 mg Q6H PRN PO PAIN LEVEL 1-3 OR FEVER; Start at 18:30 Acetaminophen/ Hydrocodone Bitart ([place] (5/325)) 1 tab Q6H PRN PO MODERATE PAIN LEVEL 4-6; Start 02/15/17 at 18:30 Morphine Sulfate (morphine) 2 mg Q4H PRN IV SEVERE PAIN LEVEL 7-10; Start 02/15 at 18:30 Docusate Sodium (Colace) 100 mg Q12H PRN PO CONSTIPATION; Start 02/15/17 at 18: 30 Zolpidem Tartrate (Ambien) 5 mg QHS PRN PO SLEEP; Start 02/15/17 at 18:30 Enoxaparin Sodium (Lovenox) 40 mg DAILY SC Last administered on 02/16/17 09:02 ; Admin Dose 40 MG; Start 02/16/17 at 09:00 Lorazepam (Ativan) 1 mg Q4H PRN IV AGITATION/ANXIETY Last administered on 07:57; Admin Dose 1 MG; Start 02/15/17 at 18:30 Quetiapine Fumarate (Seroquel) 200 mg QHS PO Last administered on 02/24/17 20: 49; Admin Dose 200 MG; Start 02/16/17 at 21:00 Quetiapine Fumarate (Seroquel) 50 mg QAM PO Last administered on 02/24/17 09:03 ; Admin Dose 50 MG; Start 02/17/17 at 09:00 Diphenhydramine HCl (Benadryl) 25 mg Q6 PRN IV ALLERGIC REACTION; Start at 16:30 Hydralazine HCl (Apresoline) 10 mg Q4H PRN IV ELEVATED SYSTOLIC BP Last administered on 02/17/17 21:49; Admin Dose 10 MG; Start 02/17/17 at 21:30 Doxycycline Hyclate (Vibramycin) 100 mg BID PO Last administered on 03/02/17 20:22; Admin Dose 100 MG; Start 02/21/17 at 16:00 NITA RODRIGUEZ NP Mar 03, 2017 14:36
--- NOTE | 2017-03-03 17:04 | PSY ---
Date/Time of Note Date/Time of Note DATE: 03/03/17 TIME: 17:00 Psychiatric Subjective Eval Consent Pt consented to telemedicine: Yes Subjective Evaluation Patient location: inpatient Chief Complaint: Grave disability Reason for consult: Grave disability, confusion, disorganized speech. History of present illness 66 YO HOMELESS female with hx schizophrenia. Spoke with Dr Estrada. Pt is medically cleared for discharge. Per Dr Estrada, the pt is ambulatory and had PT /OT assessment . Pt is pleasant and cooperative, verbose. She says, she has a place to stay and has friened and is willing to provide names of her friend to SW. She estrella si or hi, denies ah or vh. + DIO + grandiose. No depression, no insomnia. Past psychiatric history prior inpt Hospitalization: yes Family History fahter had ptsd Medical history as per record Allergies: Coded Allergies: amoxicillin (Verified Allergy, Severe, sob, 02/15/17) Sulfa (Sulfonamide Antibiotics) (Verified Allergy, Intermediate, rashes, ) Penicillins (Unverified Allergy, Unknown, SOB, HEART PALPITATION, 02/15/17) Substance Abuse Substance use: No known substance abuse Social History Marital status: single Level of education: GED DPA/Conservatorship: No Occupation/Residential: Disabled Psychiatric Objective Eval Mental Status Examination: Appearance: Groomed Eye Contact: Good Psychomotor Activity: Normal Behavior: Cooperative Speech: Disorganized AFFECT: Appropriate Mood: Appropriate/Full Though Process: Loose, Tangential Thought Content: Delusions Suicidal: No Homicidal: No On 72 hour hold: No Orientation: x4 Cognition: Alert Insight: Impared Judgement: Impared Assessment and Plan Assessment/Diagnosis [employer] I: SCHIZOPHRENIA, CHRONIC PARANOID [employer] II: DEFERED [employer] III: PER RECORD [employer] IV: MODERATE [employer] V: GAF 45 Recommendation/Plan Medication Management CONITNUE SEROQUEL Psychotherapy DEFER TO OUTPT Pt. Caregiver/Family Education NO DTS, DTO, GD - PT HAS SSI. SW - PLEASE REFER TO SNF OR BOARD AND CARE. ANTHONY FRIED MD Mar 03, 2017 17:04
[2017-03-03] MEDS: QUETIAPINE 100 MG TAB PO SCH (20:02)
[2017-03-03 21:47] VITALS: BP 128/75; RESP 16
[2017-03-04 07:40] VITALS: BP 110/65; RESP 16
[2017-03-04] MEDS: QUETIAPINE 25 MG TAB PO SCH (08:41)
[2017-03-04] MEDS: ENOXAPARIN 40 MG/0.4 ML SYG SC SCH (08:42)
[2017-03-04] MEDS: DOXYCYCLINE 100 MG TAB PO SCH (09:19)
[2017-03-04] MEDS ORDERED: DOXY100T20 PO (15:06)
[2017-03-04] MEDS ORDERED: QUET25TA33 PO (15:06)
[2017-03-04] MEDS ORDERED: QUET100T32 PO (15:06)
--- NOTE | 2017-03-04 15:10 | PDOCDIS ---
Discharge Instructions DIAGNOSIS Discharge Diagnosis: 1. left lower extremity cellulitis 2. reported psychosis. 3. homeless CONDITION Patient Condition: Stable HOME CARE INSTRUCTIONS: Special Diet: regular FOLLOW UP/APPOINTMENTS Appointments 1. Follow up with your primary care provider in one week SLOANE GRAY Mar 04, 2017 15:10
--- NOTE | 2017-03-06 18:12 | DS ---
Date/Time of Note Date/Time of Note DATE: 03/06/17 TIME: 18:05 Discharge Summary Admission/Discharge Info Admit Date/Time Feb 15, 2017 at 16:49 Discharge Date/Time Mar 04, 2017 at 16:15 Final Diagnosis 1. Left lower extremity cellulitis. 2. Reported unspecified psychosis. 3. 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 Patient Condition: Stable Consults 1. Dr. Lizette Thornton 2. Dr. Maury Fox 3. Dr. Andrew Crowley Hospital Course This is a 66-year-old female with history of psychiatric disorder who went to [facility] due to reports of psychosis. It was reported that patient would ramble and unable to answer any questions that were asked of her. Patient was seen by tele-psychiatrist. The patient was noted to be greatly disabled considering her medical and mental condition. She was placed on 5150. Patient was placed on Seroquel per recommendations of tele-psychiatrist. Patient was also noted with left lower extremity cellulitis and was seen by infectious disease physician and placed on appropriate antibiotics. During the course of stay she did improve. Her psychosis episodes did decrease and were able to have patient evaluated by tele-psychiatrist and 5150 hold was removed. She was resumed on Seroquel for this. She also did have a response from antibiotic therapy for her left lower extremity cellulitis. Patient was noted to be homeless and she was seen by social director. After being seen by social director and try to get hold of family was noted that patient was not willing to be involved with the patient's help. Patient refused any kind of longterm facility or board and care placement. She also refused going to an emergency usp and refused emergency usp resources. She was requesting to go to her restorationist and address [id number] [place], [address]. She did report she would make her own plans for her own transportation. She was cleared by social director as well as by tele-psychiatrist on the day of her discharge. She was continued on her medications as outpatient. The plan of care was discussed with the patient and she did verbalize understanding. On the day of discharge patient was in stable condition Discussed plan of care with Dr. Reid Discharge process time: 40 minutes Home Meds Active Scripts Doxycycline Hyclate* (Doxycycline Hyclate*) 100 Mg Tablet., 100 MG PO BID for 4 Days, TAB Prov:SLOANE GRAY 03/04/17 Quetiapine Fumarate* (Quetiapine Fumarate*) 100 Mg Tablet, 200 MG PO QHS for 30 Days, TAB Prov:SLOANE GRAY 03/04/17 Quetiapine Fumarate* (Quetiapine Fumarate*) 25 Mg Tablet, 50 MG PO QAM for 30 Days, TAB Prov:SLOANE GRAY 03/04/17 Follow-up Plan CONDITION Patient Condition: Stable HOME CARE INSTRUCTIONS: Special Diet: regular FOLLOW UP/APPOINTMENTS Appointments 1. Follow up with your primary care provider in one week SLOANE GRAY Mar 06, 2017 18:12
== END 2017-03-04 16:15 | disposition home or self-care (01) | DRG 603 ==
LOC: PP2 16:49
PROVIDERS: ADMIT Family Medicine; ATTEND Family Medicine
DX: L03.116 Cellulitis of left lower limb (principal); F20.0 Paranoid schizophrenia; R73.03 Prediabetes; Z88.2 Allergy status to sulfonamides; Z59.0 Homelessness; Z88.0 Allergy status to penicillin; Z91.19 Patient's noncompliance with other medical treatment and regimen
CPT/HCPCS: 80048; 80202; 82565; 83036; 83735; 84100; 84520; 85025; 87081; 97116; 97162; 97530; J0360; J0696; J1650; J2060; J3370